=== PATIENT | male | born 1965 | race Caucasian/White ===

== ENCOUNTER 2020-03-14 13:21 | Inpatient (IN) | payer SELFPAY ==
[~2020-03-14] VITALS: Ht 167.6 cm; Wt 90.7 kg
[2020-03-14] MEDS ORDERED: IV NORMAL SALINE 1000ML BAG 1,000 ML IV SCH ×3 (13:54→15:17)
[2020-03-14 14:05] LABS: BASO % 0 % (0-3); EOS # 0.1 x10^3/uL (0.0-0.7); EOS % 1 % (0-3); HEMATOCRIT 39.1 % (39.0-53.0); HEMOGLOBIN 12.6 g/dL (13.0-17.5); LYMPH # 1.5 x10^3/uL (1.0-4.8); LYMPH % 13 % (24-48); MEAN CORPUSCULAR HEMOGLOBIN 35 pg (25-35); MEAN CORPUSCULAR HGB CONC 32 g/dL (31-37); MEAN CORPUSCULAR VOLUME 110 fL (79-100); MONO % 8 % (0-9); NEUT # 9.5 x10^3/uL (1.8-7.7); NEUT % 79 % (31-73); PLATELET COUNT 182 x10^3/uL (140-400); RED BLOOD COUNT 3.56 x10^6/uL (4.30-5.70); RED CELL DISTRIBUTION WIDTH 14.6 % (11.5-14.5); WHITE BLOOD COUNT 12.1 x10^3/uL (4.0-11.0)
--- NOTE | 2020-03-14 14:10 | EKG ---
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
--- NOTE | 2020-03-14 14:13 | PHYS DOC ---
Past Medical History Past Medical History: Alcoholism, Hypertension, Liver Disease Smoking Status: Never Smoker Alcohol Use: Heavy General Adult EDM: Chief Complaint: ALTERED MENTAL STATUS HPI: HPI: Patient is a 54-year-old male who presents to the emergency department for evaluation. He states EMS was called because a friend of his came to check on him after having not seen the patient for several days. The patient states he has a history of heavy alcohol use, and about a month ago was diagnosed with "liver problems", in the emergency department at [facility]. The patient states he was not hospitalized. He states he has had some generalized weakness. He states he last had some alcohol last Thursday. He denies any focal symptoms or pain. He denies any chest pain, abdominal pain, headache, or significant shortness of breath. EMS reported a mild intermittent cough but the patient does not complain of this or exhibit any respiratory symptoms. There are no alleviating or exacerbating factors to his symptoms. Review of Systems: Review of Systems: Constitutional: Denies fever or chills. [] Eyes: Denies change in visual acuity. [] HENT: Denies nasal congestion or sore throat. [] Respiratory: Denies cough or shortness of breath. [] Cardiovascular: Denies chest pain or edema. [] GI: Denies abdominal pain, nausea, vomiting, bloody stools or diarrhea. [] : Denies dysuria. [] Musculoskeletal: Denies back pain or joint pain. [] Integument: Denies rash.. Reports jaundice. [] Neurologic: Denies headache, focal weakness or sensory changes. Reports generalized weakness. [] Endocrine: Denies polyuria or polydipsia. [] Lymphatic: Denies swollen glands. [] Psychiatric: Denies depression or anxiety. [] Heart Score: Risk Factors: Risk Factors: DM, Current or recent (<one month) smoker, HTN, HLP, family history of CAD, obesity. Risk Scores: Score 0 - 3: 2.5% MACE over next 6 weeks - Discharge Home Score 4 - 6: 20.3% MACE over next 6 weeks - Admit for Clinical Observation Score 7 - 10: 72.7% MACE over next 6 weeks - Early Invasive Strategies Current Medications: Current Medications Medications (Trade) Dose Ordered Sig/David Start Time Stop Time Status Last Admin Dose Admin Sodium Chloride 1,000 ml @ 100 mls/hr Q10H 03/14/20 13:54 03/14/20 23:53 Allergies: Allergies: Allergies Coded Allergies Type Severity Reaction Last Updated Verified No Known Drug Allergies 03/14/20 No Physical Exam: PE: PHYSICAL EXAM: CONSTITUTIONAL: Well developed, well nourished HEAD: normocephalic, atraumatic EENT: PERRL, EOMI. Conjunctivae normal color, sclerae appear icteric; dry mucous membranes. NECK: Supple, non-tender; no meningismus. LUNGS: Lungs CTA, breathing even and unlabored. Normal air movement. HEART: Regular rate and rhythm, no murmur CHEST: No deformity; non-tender ABDOMEN: The abdomen is soft, mildly distended, but non-tender, no masses or bruits. EXTREM: Normal ROM; no deformity, no calf tenderness. Normal pulses palpable in all extremities. There is mild bilateral pedal edema. SKIN: No rash; no diaphoresis. The skin is jaundiced. NEURO: Alert; normal speech and cognition; CN's grossly intact; strength grossly intact without focal deficit. BACK: No CVA TTP. Current Patient Data: Labs: Laboratory Tests Test 03/14/20 13:25 White Blood Count 12.1 x10^3/uL (4.0-11.0) H Red Blood Count 3.56 x10^6/uL (4.30-5.70) L Hemoglobin 12.6 g/dL (13.0-17.5) L Hematocrit 39.1 % (39.0-53.0) Mean Corpuscular Volume 110 fL (79-100) H Mean Corpuscular Hemoglobin 35 pg (25-35) Mean Corpuscular Hemoglobin Concent 32 g/dL (31-37) Red Cell Distribution Width 14.6 % (11.5-14.5) H Platelet Count 182 x10^3/uL (140-400) Neutrophils (%) (Auto) 79 % (31-73) H Lymphocytes (%) (Auto) 13 % (24-48) L Monocytes (%) (Auto) 8 % (0-9) Eosinophils (%) (Auto) 1 % (0-3) Basophils (%) (Auto) 0 % (0-3) Neutrophils # (Auto) 9.5 x10^3/uL (1.8-7.7) H Lymphocytes # (Auto) 1.5 x10^3/uL (1.0-4.8) Monocytes # (Auto) 1.0 x10^3/uL (0.0-1.1) Eosinophils # (Auto) 0.1 x10^3/uL (0.0-0.7) Basophils # (Auto) 0.0 x10^3/uL (0.0-0.2) Platelet Estimate Pending Laboratory Tests 03/14/20 13:25 Vital Signs: Vital Signs Date Time Temp Pulse Resp B/P (MAP) Pulse Ox O2 Delivery O2 Flow Rate FiO2 03/14/20 13:25 97.6 92 20 128/72 (90) 99 Room Air 97.6 EKG: EKG: Normal sinus rhythm with a normal rate, normal axis, normal intervals, there are no acute ischemic ST/T changes. Low voltage is present. [] Radiology/Procedures: Radiology/Procedures: PROCEDURE: PORTABLE CHEST 1V EXAM: CHEST 1 VIEW History: Altered mental status COMPARISON: None available. TECHNIQUE: Single portable radiograph of the chest FINDINGS: The cardiac silhouette is unremarkable. The lungs are clear bilaterally. The costophrenic sulci are clear and well demarcated. IMPRESSION: No radiographic evidence of an acute cardiopulmonary process. [] Course & Med Decision Making: Course & Med Decision Making Pertinent Labs and Imaging studies reviewed. (See chart for details) [] 3:30 PM: The patient's condition remains stable. I spoke with the hospitalist, who accepted the patient to the hospital for further evaluation and treatment. Portillo Disclaimer: Portillo Disclaimer: This electronic medical record was generated, in whole or in part, using a voice recognition dictation system. Departure Departure Impression: Primary Impression: Weakness Additional Impressions: Alcoholic cirrhosis Renal failure Hyponatremia Disposition: ADMITTED INPATIENT Admitting Physician: HIMS Condition: GUARDED Referrals: UNKNOWN PCP NAME (PCP) NEGAR TOLBERT MD Mar 14, 2020 14:13
[2020-03-14 14:14] LABS: PROTHROMBIN TIME PATIENT 18.4 SEC (11.7-14.0)
[2020-03-14 14:22] LABS: ALBUMIN 2.6 g/dL (3.4-5.0); ALBUMIN/GLOBULIN RATIO 0.9 (1.0-1.7); CALCIUM 9.5 mg/dL (8.5-10.1); CREATININE 2.2 mg/dL (0.7-1.3); GFR 31.1; MAGNESIUM 1.5 mg/dL (1.8-2.4); POTASSIUM 3.3 mmol/L (3.5-5.1); TOTAL BILIRUBIN 18.6 mg/dL (0.2-1.0); TOTAL PROTEIN 5.5 g/dL (6.4-8.2)
--- NOTE | 2020-03-14 14:46 | RAD ---
EXAM: CHEST 1 VIEW History: Altered mental status COMPARISON: None available. TECHNIQUE: Single portable radiograph of the chest FINDINGS: The cardiac silhouette is unremarkable. The lungs are clear bilaterally. The costophrenic sulci are clear and well demarcated. IMPRESSION: No radiographic evidence of an acute cardiopulmonary process. Electronically signed by: Mehdi Chavez MD (03/14/2020 2:43 PM) [id number]
[2020-03-14] MEDS ORDERED: MAGNESIUM SULFATE 1GM 100 ML IV ONE (15:00)
[2020-03-14] MEDS ORDERED: POTASSIUM CHLORIDE 20 MEQ TABLET.ER. PO ONE (15:00)
[2020-03-14 15:03] LABS: % MYELOS 2 % (0-0)
[2020-03-14 15:05] LABS: % BANDS 10 % (0-9); % LYMPHS 8 % (24-48); % MONOS 8 % (0-10); % SEGS 72 % (35-66); NUCLEATED RBC 5; PLT ESTIMATE ADEQUATE (ADEQUATE)
[2020-03-14] MEDS ORDERED: IV DEXTROSE 5%-LACT RINGERS 1,000 ML IV ONE (15:30)
[2020-03-14] MEDS ORDERED: DOCUSATE SODIUM 100 MG CAPSULE. PO PRN (15:30)
[2020-03-14] MEDS ORDERED: chlordiazePOXIDE HCL 25 MG CAPSULE PO PRN ×2 (15:30)
[2020-03-14] MEDS ORDERED: ACETAMINOPHEN 325 MG TABLET. PO PRN (15:30)
[2020-03-14] MEDS ORDERED: ONDANSETRON PF 4 MG/2 ML VIAL. IV PRN (15:30)
[2020-03-14] MEDS ORDERED: MULTIVIT INFUSN,ADULT 4,VIT K 10 ML, THIAMINE INJ 100 MG, FOLIC ACID INJ 1 MG in IV NOR... IV ONE (15:30)
[2020-03-14] MEDS ORDERED: cloNIDine HCL 0.1 MG TABLET PO PRN (15:30)
[2020-03-14] MEDS ORDERED: ZOLPIDEM 5 MG TABLET. PO PRN (15:30)
[2020-03-14] MEDS ORDERED: diphenhydrAMINE 50 MG/ML VIAL IVP PRN (15:30)
[2020-03-14] MEDS ORDERED: guaiFENesin ORAL 200 MG/10 ML LIQUID. PO PRN (15:30)
[2020-03-14] MEDS ORDERED: ALBUTEROL SULFATE 2.5 MG/3 ML NEBU. NEB PRN (15:30)
[2020-03-14 15:53] LABS: CLARITY,URINE CLOUDY
[2020-03-14 15:57] LABS: FREE T4 1.24 ng/dL (0.76-1.46); THYROID STIM HORMONE (TSH) 3.678 uIU/mL (0.358-3.74)
[2020-03-14 16:01] LABS: BARBITURATES NEG (NEG); BENZODIAZEPINES NEG (NEG); CANNABINOIDS NEG (NEG); COCAINE NEG (NEG); METHADONE NEG (NEG); OPIATES NEG (NEG); PHENCYCLIDINE NEG (NEG)
[2020-03-14 16:03] LABS: COLOR,URINE AMBER; HYALINE CASTS, URINE MODERATE /HPF
[2020-03-14 16:05] LABS: AMPHETAMINE/METHAMPHETAMINE NEG (NEG)
[2020-03-14 16:06] LABS: BACTERIA,URINE 0 /HPF (0-FEW)
[2020-03-14 16:14] LABS: RBC,URINE OCC /HPF (0-2)
[2020-03-14 17:00] VITALS: BP 111/65
--- NOTE | 2020-03-14 17:07 | PDOC1 ---
History and Physical Date of Admission Date of Admission 03/14/2020 Identification/Chief Complaint Chief Complaint I feel sick Source Source: Chart review, Patient History of Present Illness History of Present Illness Patient is a 54 year old male with past medical history of alcohol abuse who was in his usual state of health until approximately 2 days prior to his admission. The patient apparently has been drinking 8 ounces of vodka every day for several years now and was seen approximately 1 month ago at a local hospital in [place] for similar presentation. Patient is jaundiced seems quite disoriented and feels lightheaded and having unsteady gait. Patient has not had a drink in about 30 hours and he was brought in by EMS services after a friend checked on him after not being able to get in contact with him. The patient denies any sick contacts he denies dietary transgressions. He denies history of illegal drug abuse no tattoos no risky behavior has been reported and no history of hepatitis either. The patient has not had any travels outside this area, at the time of my evaluation the patient seems to be in no acute distress does not exhibit hemodynamic instability. Patient denies having had seizures or hallucinations in the past. He has been battling alcohol abuse for several years now Work-up in the emergency department revealed severe electrolyte disturbances reason why we were asked to admit the patient for further treatment. I have discussed the results of his testing and explained the plan of care to the best of my abilities. Patient agrees with the proposed plan of care ER history: Patient is a 54-year-old male who presents to the emergency department for evaluation. He states EMS was called because a friend of his came to check on him after having not seen the patient for several days. The patient states he has a history of heavy alcohol use, and about a month ago was diagnosed with "liver problems", in the emergency department at [facility]. The patient states he was not hospitalized. He states he has had some generalized weakness. He states he last had some alcohol last Thursday. He denies any focal symptoms or pain. He denies any chest pain, abdominal pain, headache, or significant shortness of breath. EMS reported a mild intermittent cough but the patient does not complain of this or exhibit any respiratory sy mptoms. There are no alleviating or exacerbating factors to his symptoms. Past Medical History Psych: Other (Alcoholism) Past Surgical History Past Surgical History: No pertinent history Family History Family History: Other (No pertinent history) Social History Smoke: No ALCOHOL: heavy Drugs: None Current Problem List Problem List Problems Medical Problems: (1) Alcoholic cirrhosis Status: Acute (2) Hyponatremia Status: Acute (3) Renal failure Status: Acute (4) Weakness Status: Acute Current Medications Current Medications Current Medications Medications (Trade) Dose Ordered Sig/David Start Time Stop Time Status Last Admin Dose Admin Acetaminophen (Tylenol) 650 mg PRN Q4HRS PRN 03/14/20 15:30 Albuterol Sulfate (Ventolin Neb Soln) 2.5 mg PRN Q4HRS PRN 03/14/20 15:30 Chlordiazepoxide (Librium) 100 mg PRN Q1HR PRN 03/14/20 15:30 Clonidine HCl (Catapres) 0.1 mg PRN Q6HRS PRN 03/14/20 15:30 Dextrose/Lactated Ringer's 1,000 ml @ 125 mls/hr 1X ONCE 03/14/20 15:30 03/14/20 23:29 Diphenhydramine HCl (Benadryl) 25 mg PRN Q4HRS PRN 03/14/20 15:30 Docusate Sodium (Colace) 100 mg PRN BID PRN 03/14/20 15:30 Enoxaparin Sodium (Lovenox 40mg Syringe) 40 mg Q24H 03/14/20 21:00 Folic Acid (Folic Acid) 1 mg DAILY 03/19/20 09:00 Guaifenesin (Robitussin) 200 mg PRN Q4HRS PRN 03/14/20 15:30 Lorazepam (Ativan Inj) 2 mg PRN Q15MIN PRN 03/14/20 15:30 Magnesium Sulfate/ Dextrose 100 ml @ 100 mls/hr 1X ONCE 03/14/20 15:00 03/14/20 15:59 DC 03/14/20 16:03 100 MLS/HR Multivitamins 10 ml/Thiamine HCl 100 mg/Folic Acid 1 mg/Sodium Chloride 1,011.2 ml @ 125 mls/ hr 1X ONCE 03/14/20 15:30 03/14/20 23:35 03/14/20 15:40 125 MLS/HR Ondansetron HCl (Zofran) 4 mg PRN Q4HRS PRN 03/14/20 15:30 Potassium Chloride (Klor-Con) 40 meq 1X ONCE 03/14/20 15:00 03/14/20 15:01 DC 03/14/20 15:25 40 MEQ Sodium Chloride 1,000 ml @ 100 mls/hr Q10H 03/14/20 15:17 Thiamine Mononitrate (Vitamin B-1) 100 mg DAILY 03/19/20 09:00 Zolpidem Tartrate (Ambien) 5 mg PRN QHS PRN 03/14/20 15:30 Allergies Allergies Allergies Coded Allergies Type Severity Reaction Last Updated Verified No Known Drug Allergies 03/14/20 No ROS Review of System CONSTITUTIONAL: No fever or chills EYES: No recent changes SKIN: jaundice no itching CARDIOVASCULAR: No chest pain, syncope, palpitations, or edema RESPIRATORY: No SOB or cough GASTROINTESTINAL: No nausea, vomiting or abdominal pain NEUROLOGICAL: No headaches + weakness ENDOCRINE: No cold or heat intolerance GENITOURINARY: No urgency or frequency of urination MUSCULOSKELETAL: No back pain or joint pain LYMPHATICS: No enlarged lymph nodes PSYCHIATRIC: No anxiety or depression Physical Exam Physical Exam GEN.: No apparent distress. Alert and oriented. HEENT: Head is normocephalic, atraumatic NECK: Supple. LUNGS: Clear to auscultation. HEART: RRR, S1, S2 present. Peripheral pulses intact ABDOMEN: Soft, nontender. Positive bowel sounds. EXTREMITIES: Without any cyanosis. NEUROLOGIC: Normal speech, normal tone PSYCHIATRIC: Normal affect, normal mood. SKIN: No ulcerations Vitals Vitals Vital Signs Date Time Temp Pulse Resp B/P (MAP) Pulse Ox O2 Delivery O2 Flow Rate FiO2 03/14/20 16:22 88 18 98 03/14/20 13:25 97.6 128/72 (90) Room Air 97.6 Labs Labs Laboratory Tests Test 03/14/20 13:25 03/14/20 15:33 White Blood Count 12.1 x10^3/uL (4.0-11.0) Red Blood Count 3.56 x10^6/uL (4.30-5.70) Hemoglobin 12.6 g/dL (13.0-17.5) Hematocrit 39.1 % (39.0-53.0) Mean Corpuscular Volume 110 fL (79-100) Mean Corpuscular Hemoglobin 35 pg (25-35) Mean Corpuscular Hemoglobin Concent 32 g/dL (31-37) Red Cell Distribution Width 14.6 % (11.5-14.5) Platelet Count 182 x10^3/uL (140-400) Neutrophils (%) (Auto) 79 % (31-73) Lymphocytes (%) (Auto) 13 % (24-48) Monocytes (%) (Auto) 8 % (0-9) Eosinophils (%) (Auto) 1 % (0-3) Basophils (%) (Auto) 0 % (0-3) Neutrophils # (Auto) 9.5 x10^3/uL (1.8-7.7) Lymphocytes # (Auto) 1.5 x10^3/uL (1.0-4.8) Monocytes # (Auto) 1.0 x10^3/uL (0.0-1.1) Eosinophils # (Auto) 0.1 x10^3/uL (0.0-0.7) Basophils # (Auto) 0.0 x10^3/uL (0.0-0.2) Segmented Neutrophils % 72 % (35-66) Band Neutrophils % 10 % (0-9) Lymphocytes % 8 % (24-48) Monocytes % 8 % (0-10) Myelocytes % 2 % (0-0) Nucleated Red Blood Cells 5 Platelet Estimate Adequate (ADEQUATE) Macrocytosis Present Prothrombin Time 18.4 SEC (11.7-14.0) Prothromb Time International Ratio 1.6 (0.8-1.1) Sodium Level 119 mmol/L (136-145) Potassium Level 3.3 mmol/L (3.5-5.1) Chloride Level 75 mmol/L (98-107) Carbon Dioxide Level 22 mmol/L (21-32) Anion Gap 22 (6-14) Blood Urea Nitrogen 27 mg/dL (8-26) Creatinine 2.2 mg/dL (0.7-1.3) Estimated GFR (Cockcroft-Gault) 31.1 BUN/Creatinine Ratio 12 (6-20) Glucose Level 58 mg/dL (70-99) Calcium Level 9.5 mg/dL (8.5-10.1) Magnesium Level 1.5 mg/dL (1.8-2.4) Total Bilirubin 18.6 mg/dL (0.2-1.0) Aspartate Amino Transf (AST/SGOT) 297 U/L (15-37) Alanine Aminotransferase (ALT/SGPT) 132 U/L (16-63) Alkaline Phosphatase 311 U/L (46-116) Ammonia 48 mcmol/L (11-34) Troponin I Quantitative 0.026 ng/mL (0.000-0.055) TR-Tch-G-Type Natriuretic Peptide 2356 pg/mL (0-124) Total Protein 5.5 g/dL (6.4-8.2) Albumin 2.6 g/dL (3.4-5.0) Albumin/Globulin Ratio 0.9 (1.0-1.7) Lipase 541 U/L (73-393) Vitamin B12 Level 1705 pg/mL (247-911) Thyroid Stimulating Hormone (TSH) 3.678 uIU/mL (0.358-3.74) Free Thyroxine 1.24 ng/dL (0.76-1.46) Ethyl Alcohol Level < 10 mg/dL (0-10) Urine Collection Type Unknown Urine Color Pratima Urine Clarity Cloudy Urine pH (<5.0-8.0) Urine Specific [place] (1.000-1.030) Urine Protein mg/dL (NEG-TRACE) Urine Glucose (UA) mg/dL (NEG) Urine Ketones (Stick) mg/dL (NEG) Urine Blood (NEG) Urine Nitrite (NEG) Urine Bilirubin (NEG) Urine Urobilinogen Dipstick mg/dL (0.2 mg/dL) Urine Leukocyte Esterase (NEG) Urine RBC Occ /HPF (0-2) Urine WBC 1-4 /HPF (0-4) Urine Bacteria 0 /HPF (0-FEW) Urine Hyaline Casts Moderate /HPF Urine Mucus Mod /LPF Urine Opiates Screen Neg (NEG) Urine Methadone Screen Neg (NEG) Urine Barbiturates Neg (NEG) Urine Phencyclidine Screen Neg (NEG) Urine Amphetamine/Methamphetamine Neg (NEG) Urine Benzodiazepines Screen Neg (NEG) Urine Cocaine Screen Neg (NEG) Urine Cannabinoids Screen Neg (NEG) Urine Ethyl Alcohol Neg (NEG) Laboratory Tests Test 03/14/20 13:25 03/14/20 15:33 White Blood Count 12.1 x10^3/uL (4.0-11.0) Red Blood Count 3.56 x10^6/uL (4.30-5.70) Hemoglobin 12.6 g/dL (13.0-17.5) Hematocrit 39.1 % (39.0-53.0) Mean Corpuscular Volume 110 fL (79-100) Mean Corpuscular Hemoglobin 35 pg (25-35) Mean Corpuscular Hemoglobin Concent 32 g/dL (31-37) Red Cell Distribution Width 14.6 % (11.5-14.5) Platelet Count 182 x10^3/uL (140-400) Neutrophils (%) (Auto) 79 % (31-73) Lymphocytes (%) (Auto) 13 % (24-48) Monocytes (%) (Auto) 8 % (0-9) Eosinophils (%) (Auto) 1 % (0-3) Basophils (%) (Auto) 0 % (0-3) Neutrophils # (Auto) 9.5 x10^3/uL (1.8-7.7) Lymphocytes # (Auto) 1.5 x10^3/uL (1.0-4.8) Monocytes # (Auto) 1.0 x10^3/uL (0.0-1.1) Eosinophils # (Auto) 0.1 x10^3/uL (0.0-0.7) Basophils # (Auto) 0.0 x10^3/uL (0.0-0.2) Segmented Neutrophils % 72 % (35-66) Band Neutrophils % 10 % (0-9) Lymphocytes % 8 % (24-48) Monocytes % 8 % (0-10) Myelocytes % 2 % (0-0) Nucleated Red Blood Cells 5 Platelet Estimate Adequate (ADEQUATE) Macrocytosis Present Prothrombin Time 18.4 SEC (11.7-14.0) Prothromb Time International Ratio 1.6 (0.8-1.1) Sodium Level 119 mmol/L (136-145) Potassium Level 3.3 mmol/L (3.5-5.1) Chloride Level 75 mmol/L (98-107) Carbon Dioxide Level 22 mmol/L (21-32) Anion Gap 22 (6-14) Blood Urea Nitrogen 27 mg/dL (8-26) Creatinine 2.2 mg/dL (0.7-1.3) Estimated GFR (Cockcroft-Gault) 31.1 BUN/Creatinine Ratio 12 (6-20) Glucose Level 58 mg/dL (70-99) Calcium Level 9.5 mg/dL (8.5-10.1) Magnesium Level 1.5 mg/dL (1.8-2.4) Total Bilirubin 18.6 mg/dL (0.2-1.0) Aspartate Amino Transf (AST/SGOT) 297 U/L (15-37) Alanine Aminotransferase (ALT/SGPT) 132 U/L (16-63) Alkaline Phosphatase 311 U/L (46-116) Ammonia 48 mcmol/L (11-34) Troponin I Quantitative 0.026 ng/mL (0.000-0.055) CN-Rfd-B-Type Natriuretic Peptide 2356 pg/mL (0-124) Total Protein 5.5 g/dL (6.4-8.2) Albumin 2.6 g/dL (3.4-5.0) Albumin/Globulin Ratio 0.9 (1.0-1.7) Lipase 541 U/L (73-393) Vitamin B12 Level 1705 pg/mL (247-911) Thyroid Stimulating Hormone (TSH) 3.678 uIU/mL (0.358-3.74) Free Thyroxine 1.24 ng/dL (0.76-1.46) Ethyl Alcohol Level < 10 mg/dL (0-10) Urine Collection Type Unknown Urine Color Pratima Urine Clarity Cloudy Urine pH (<5.0-8.0) Urine Specific [place] (1.000-1.030) Urine Protein mg/dL (NEG-TRACE) Urine Glucose (UA) mg/dL (NEG) Urine Ketones (Stick) mg/dL (NEG) Urine Blood (NEG) Urine Nitrite (NEG) Urine Bilirubin (NEG) Urine Urobilinogen Dipstick mg/dL (0.2 mg/dL) Urine Leukocyte Esterase (NEG) Urine RBC Occ /HPF (0-2) Urine WBC 1-4 /HPF (0-4) Urine Bacteria 0 /HPF (0-FEW) Urine Hyaline Casts Moderate /HPF Urine Mucus Mod /LPF Urine Opiates Screen Neg (NEG) Urine Methadone Screen Neg (NEG) Urine Barbiturates Neg (NEG) Urine Phencyclidine Screen Neg (NEG) Urine Amphetamine/Methamphetamine Neg (NEG) Urine Benzodiazepines Screen Neg (NEG) Urine Cocaine Screen Neg (NEG) Urine Cannabinoids Screen Neg (NEG) Urine Ethyl Alcohol Neg (NEG) VTE Prophylaxis Ordered VTE Prophylaxis Devices: Yes VTE Pharmacological Prophylaxi: No Assessment/Plan Assessment/Plan Acute alcoholic hepatitis, Maddrey score is 47, scores greater than 32 are poor prognosis. Acute renal failure most likely prerenal etiology since patient has had very poor oral intake over the last 72 hours. Severe hyponatremia Hypomagnesemia Hypokalemia Hypoglycemia Elevated Lipase, doubt pancreatitis given that his symptoms most likely are related to his alcoholic hepatitis Severe alcoholism Plan: do urine electrolytes serum and urine osmol will start prednisolone recheck bmp every 4 hours times 3 replace electrolytes fluid resuscitation will give a banana bag follow urinary output reassess in the am prognosis guarded given the acuity of his presentation SCD for DVT prophylaxis given his liver dysfunction and already autoanticoagulation as a consequence ZABRINA MARIEE MD Mar 14, 2020 17:07
[2020-03-14] MEDS: POTASSIUM CHLORIDE 20MEQ 100 ML IV SCH ×2 (17:23→20:11)
[2020-03-14] MEDS ORDERED: MAGNESIUM SULFATE 4GM 100 ML IV ONE (18:00)
--- NOTE | 2020-03-14 18:22 | NUR ---
Patient arrived around 1630 from the ED on a stretcher. Patient with two IVs in his left arm which are working appropriately and infusing. Patient confused/inconsistent with his memory. Poor historian. Patient appears jaundice and states he drinks a pint of vodka at day. Patient slightly restless upon admission but once he received more fluids he became extremely restless and did not want to sit still. He was stating he could see candy canes floating in the room, itching, trying to pull out IV, and having moderate tremors. Patient states he would like a drink of alcohol. Reoriented him to the facility and where he was at. CIWA completed again and medications given. Will continue to monitor.
[2020-03-14 18:34] LABS: CALCIUM 8.6 mg/dL (8.5-10.1); CREATININE 1.9 mg/dL (0.7-1.3); GFR 36.9; POTASSIUM 3.3 mmol/L (3.5-5.1)
[2020-03-14 19:00] VITALS: BP 104/34
[2020-03-14] MEDS: prednisoLONE 15 MG/5 ML ORAL SOLUTION. PO SCH (20:24)
[2020-03-14] MEDS ORDERED: ENOXAPARIN 40 MG/0.4 ML SYRINGE. SQ SCH (21:00)
--- NOTE | 2020-03-14 21:45 | RAD ---
Exam: Ultrasound abdomen complete Indication: Hyperbilirubinemia/transaminitis Technique: Real-time grayscale and color Doppler images of the abdomen were obtained by the department cotton agent. Comparisons: None FINDINGS: Increased echogenicity of the liver. Hepatopedal flow within the portal vein. Gallbladder is unremarkable. No pericholecystic fluid or wall thickening. Common bile duct measures 4 mm. Right kidney measures 15.1 cm in length. No hydronephrosis. Left kidney measures 14.9 cm in length. No hydronephrosis. Spleen measures 10.2 cm in length. Visualized portions aorta and IVC are unremarkable. IMPRESSION: 1. Increased echogenicity of the liver, likely hepatic steatosis. 2. No hydronephrosis. 3. Normal sonographic appearance of the gallbladder, no evidence of acute cholecystitis. Electronically signed by: Isaias Antonio MD (03/14/2020 9:42 PM) [id number]
[2020-03-14 22:11] LABS: CALCIUM 8.4 mg/dL (8.5-10.1); CREATININE 1.8 mg/dL (0.7-1.3); GFR 39.2; POTASSIUM 3.1 mmol/L (3.5-5.1)
[2020-03-14 23:00] VITALS: BP 110/80
[2020-03-14] MEDS ORDERED: SODIUM CHLORIDE 3 % 500 ML IV ONE (23:30)
[2020-03-15] VITALS (7 sets, daily range): BP systolic 107–144; BP diastolic 62–82
[2020-03-15 04:29] LABS: CALCIUM 8.2 mg/dL (8.5-10.1); CREATININE 1.8 mg/dL (0.7-1.3); GFR 39.2; POTASSIUM 3.6 mmol/L (3.5-5.1)
[2020-03-15 05:09] LABS: SODIUM, URINE <20 mmol/L (Not Estab.); UR POTASSIUM 49.3 mmol/L (Not Estab.)
[2020-03-15] MEDS: prednisoLONE 15 MG/5 ML ORAL SOLUTION. PO SCH (10:23)
--- NOTE | 2020-03-15 10:46 | NUR ---
SW following. Discussed with RN, pt from home alone, doesn't have anyone. Pt withdrawing, not able to have a conversation, not appropriate for PAT at this time. SW will continue to follow.
[2020-03-15 11:05] LABS: CALCIUM 8.1 mg/dL (8.5-10.1); CREATININE 1.5 mg/dL (0.7-1.3); GFR 48.4; POTASSIUM 3.6 mmol/L (3.5-5.1)
[2020-03-15] MEDS ORDERED: IV DEXTROSE 5% - 0.9 % NACL 1,000 ML IV SCH (11:15)
[2020-03-15] MEDS ORDERED: IV DEXTROSE 5 %-0.45 % NACL 1,000 ML IV ONE (11:30)
--- NOTE | 2020-03-15 12:34 | PDOC2 ---
CONSULT Date of Consult Date of Consult DATE: 03/15/20 TIME: 12:28 Reason for Consult Reason for Consult: LOW NA Referring Physician Referring Physician: KODI Identification/Chief Complaint Chief Complaint LIVER PROBLEMS Source Source: Chart review History of Present Illness Reason for Visit: THIS IS A 54 YR OLD WITH CONFUION. 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 PT IS JAUNDICED AND DISORIENTED. LABS SHOWED LIVER FAILURE, LOW NA, LOW K, INCREASED AMMONIA LEVELS. HAS HAD SIMILAR ADMIT AT [facility]. HE CANNOT GIVE ANY HX. ALSO HAS DEENA WITH CR OF 1.8. NO OTHER ADMITS HERE Past Medical History GI: Constipation, GERD Hepatobiliary: Cirrhosis Psych: Other (Alcoholism) Past Surgical History Past Surgical History UNKNOWN Past Surgical History: No pertinent history Family History Family History: Other (No pertinent history) Social History No ALCOHOL: heavy Drugs: None Current Problem List Problem List Problems Medical Problems: (1) Alcoholic cirrhosis Status: Acute (2) Hyponatremia Status: Acute (3) Renal failure Status: Acute (4) Weakness Status: Acute Current Medications Current Medications Current Medications Sodium Chloride 1,000 ml @ 1,000 mls/hr Q1H IV Last administered on 03/14/20at 14:51; Start 03/14/20 at 13:54; Stop 03/14/20 at 14:53; Status DC Sodium Chloride 1,000 ml @ 100 mls/hr Q10H IV Last administered on 03/14/20at 16:07; Start 03/14/20 at 13:54; Stop 03/14/20 at 22:36; Status DC Magnesium Sulfate/ Dextrose 100 ml @ 100 mls/hr 1X ONCE IV Last administered on 03/14/20at 16:03; Start 03/14/20 at 15:00; Stop 03/14/20 at 15:59; Status DC Potassium Chloride (Klor-Con) 40 meq 1X ONCE PO Last administered on 03/14/20at 15:25; Start 03/14/20 at 15:00; Stop 03/14/20 at 15:01; Status DC Dextrose/Lactated Ringer's 1,000 ml @ 125 mls/hr 1X ONCE IV ; Start 03/14/20 at 15:30; Stop 03/14/20 at 17:31; Status DC Sodium Chloride 1,000 ml @ 100 mls/hr Q10H IV Last administered on 03/14/20at 16:40; Start 03/14/20 at 15:17; Stop 03/14/20 at 22:36; Status DC Multivitamins 10 ml/Thiamine HCl 100 mg/Folic Acid 1 mg/Sodium Chloride 1,011.2 ml @ 125 mls/ hr 1X ONCE IV Last administered on 03/14/20at 15:40; Start 03/14/20 at 15:30; Stop 03/14/20 at 23:35; Status DC Ondansetron HCl (Zofran) 4 mg PRN Q4HRS PRN IV NAUSEA/VOMITING; Start 03/14/20 at 15:30 Zolpidem Tartrate (Ambien) 5 mg PRN QHS PRN PO INSOMNIA; Start 03/14/20 at 15:30 Acetaminophen (Tylenol) 650 mg PRN Q4HRS PRN PO TEMP OVER 100.4F OR MILD PAIN; Start 03/14/20 at 15:30 Clonidine HCl (Catapres) 0.1 mg PRN Q6HRS PRN PO SBP>160 OR DBP>90; Start 03/14/20 at 15:30 Diphenhydramine HCl (Benadryl) 25 mg PRN Q4HRS PRN IVP ITCHING; Start 03/14/20 at 15:30 Docusate Sodium (Colace) 100 mg PRN BID PRN PO CONSTIPATION; Start 03/14/20 at 15:30 Albuterol Sulfate (Ventolin Neb Soln) 2.5 mg PRN Q4HRS PRN NEB SHORTNESS OF BREATH; Start 03/14/20 at 15:30 Guaifenesin (Robitussin) 200 mg PRN Q4HRS PRN PO COUGH; Start 03/14/20 at 15:30 Enoxaparin Sodium (Lovenox 40mg Syringe) 40 mg Q24H SQ Last administered on 03/14/20at 20:11; Start 03/14/20 at 21:00; Stop 03/15/20 at 10:27; Status DC Folic Acid (Folic Acid) 1 mg DAILY PO ; Start 03/19/20 at 09:00 Thiamine Mononitrate (Vitamin B-1) 100 mg DAILY PO ; Start 03/19/20 at 09:00 Chlordiazepoxide (Librium) 50 mg PRN Q1HR PRN PO For CIWA 8-14; Start 03/14/20 at 15:30 Chlordiazepoxide (Librium) 100 mg PRN Q1HR PRN PO For CIWA 15 or greater; Start 03/14/20 at 15:30 Lorazepam (Ativan Inj) 2 mg PRN Q15MIN PRN IV SEE COMMENTS Last administered on 03/14/20at 17:56; Start 03/14/20 at 15:30 Magnesium Sulfate 100 ml @ 25 mls/hr 1X ONCE IV Last administered on 03/14/20at 18:55; Start 03/14/20 at 18:00; Stop 03/14/20 at 21:59; Status DC Potassium Chloride/Water 100 ml @ 50 mls/hr Q2H IV Last administered on 03/14/20at 20:11; Start 03/14/20 at 17:30; Stop 03/14/20 at 21:29; Status DC Prednisone (Prelone Oral Soln) 40 mg DAILY PO Last administered on 03/15/20at 10:23; Start 03/14/20 at 20:00 Sodium Chloride 500 ml @ 50 mls/hr 1X ONCE IV Last administered on 03/15/20at 00:22; Start 03/14/20 at 23:30; Stop 03/15/20 at 09:29; Status DC Dextrose/Sodium Chloride 1,000 ml @ 100 mls/hr Q10H IV ; Start 03/15/20 at 11:15; Stop 03/15/20 at 11:19; Status DC Dextrose/Sodium Chloride 1,000 ml @ 75 mls/hr 1X ONCE IV Last administered on 03/15/20at 11:33; Start 03/15/20 at 11:30; Stop 03/16/20 at 00:49 Allergies Allergies: Coded Allergies: No Known Drug Allergies (Unverified , 03/14/20) ROS Review of System UNABLE TO OBTAIN Physical Exam General: Cooperative, No acute distress HEENT: Atraumatic, EOMI Lungs: Clear to auscultation Heart: Regular rate Abdomen: Normal bowel sounds, Soft, No tenderness Skin: No rashes, No breakdown, Other (JAUNDICED) Neuro: Other (CONFUSED) Psych/Mental Status: Other (CONFUSED) MUSCULOSKELETAL: No deformity, No swelling Vitals VITALS Vital Signs Date Time Temp Pulse Resp B/P (MAP) Pulse Ox O2 Delivery O2 Flow Rate FiO2 03/15/20 11:15 99.4 98 18 137/80 (99) 95 Room Air 99.4 Labs Labs Laboratory Tests Test 03/14/20 13:25 03/14/20 15:33 03/14/20 18:20 03/14/20 22:00 White Blood Count 12.1 x10^3/uL (4.0-11.0) Red Blood Count 3.56 x10^6/uL (4.30-5.70) Hemoglobin 12.6 g/dL (13.0-17.5) Hematocrit 39.1 % (39.0-53.0) Mean Corpuscular Volume 110 fL (79-100) Mean Corpuscular Hemoglobin 35 pg (25-35) Mean Corpuscular Hemoglobin Concent 32 g/dL (31-37) Red Cell Distribution Width 14.6 % (11.5-14.5) Platelet Count 182 x10^3/uL (140-400) Neutrophils (%) (Auto) 79 % (31-73) Lymphocytes (%) (Auto) 13 % (24-48) Monocytes (%) (Auto) 8 % (0-9) Eosinophils (%) (Auto) 1 % (0-3) Basophils (%) (Auto) 0 % (0-3) Neutrophils # (Auto) 9.5 x10^3/uL (1.8-7.7) Lymphocytes # (Auto) 1.5 x10^3/uL (1.0-4.8) Monocytes # (Auto) 1.0 x10^3/uL (0.0-1.1) Eosinophils # (Auto) 0.1 x10^3/uL (0.0-0.7) Basophils # (Auto) 0.0 x10^3/uL (0.0-0.2) Segmented Neutrophils % 72 % (35-66) Band Neutrophils % 10 % (0-9) Lymphocytes % 8 % (24-48) Monocytes % 8 % (0-10) Myelocytes % 2 % (0-0) Nucleated Red Blood Cells 5 Platelet Estimate Adequate (ADEQUATE) Macrocytosis Present Prothrombin Time 18.4 SEC (11.7-14.0) Prothromb Time International Ratio 1.6 (0.8-1.1) Urine Sodium <20 mmol/L (Not Estab.) Urine Potassium 49.3 mmol/L (Not Estab.) Urine Chloride <20 mmol/L (Not Estab.) Sodium Level 119 mmol/L (136-145) 119 mmol/L (136-145) 118 mmol/L (136-145) Potassium Level 3.3 mmol/L (3.5-5.1) 3.3 mmol/L (3.5-5.1) 3.1 mmol/L (3.5-5.1) Chloride Level 75 mmol/L (98-107) 78 mmol/L (98-107) 79 mmol/L (98-107) Carbon Dioxide Level 22 mmol/L (21-32) 21 mmol/L (21-32) 20 mmol/L (21-32) Anion Gap 22 (6-14) 20 (6-14) 19 (6-14) Blood Urea Nitrogen 27 mg/dL (8-26) 28 mg/dL (8-26) 28 mg/dL (8-26) Creatinine 2.2 mg/dL (0.7-1.3) 1.9 mg/dL (0.7-1.3) 1.8 mg/dL (0.7-1.3) Estimated GFR (Cockcroft-Gault) 31.1 36.9 39.2 BUN/Creatinine Ratio 12 (6-20) Glucose Level 58 mg/dL (70-99) 76 mg/dL (70-99) 62 mg/dL (70-99) Calcium Level 9.5 mg/dL (8.5-10.1) 8.6 mg/dL (8.5-10.1) 8.4 mg/dL (8.5-10.1) Magnesium Level 1.5 mg/dL (1.8-2.4) Total Bilirubin 18.6 mg/dL (0.2-1.0) Direct Bilirubin 14.2 mg/dL (0.0-0.2) Aspartate Amino Transf (AST/SGOT) 297 U/L (15-37) Alanine Aminotransferase (ALT/SGPT) 132 U/L (16-63) Alkaline Phosphatase 311 U/L (46-116) Ammonia 48 mcmol/L (11-34) Troponin I Quantitative 0.026 ng/mL (0.000-0.055) ZD-Mcr-Y-Type Natriuretic Peptide 2356 pg/mL (0-124) Total Protein 5.5 g/dL (6.4-8.2) Albumin 2.6 g/dL (3.4-5.0) Albumin/Globulin Ratio 0.9 (1.0-1.7) Lipase 541 U/L (73-393) Vitamin B12 Level 1705 pg/mL (247-911) Thyroid Stimulating Hormone (TSH) 3.678 uIU/mL (0.358-3.74) Free Thyroxine 1.24 ng/dL (0.76-1.46) Ethyl Alcohol Level < 10 mg/dL (0-10) Hepatitis A IgM Antibody Nonreactive (Nonreactive) Hepatitis B Surface Antigen Nonreactive (Nonreactive) Hepatitis B Core IgM Antibody Nonreactive (Nonreactive) Hepatitis C IgG Antibody Nonreactive (Nonreactive) Urine Collection Type Unknown Urine Color Pratima Urine Clarity Cloudy Urine pH (<5.0-8.0) Urine Specific [place] (1.000-1.030) Urine Protein mg/dL (NEG-TRACE) Urine Glucose (UA) mg/dL (NEG) Urine Ketones (Stick) mg/dL (NEG) Urine Blood (NEG) Urine Nitrite (NEG) Urine Bilirubin (NEG) Urine Urobilinogen Dipstick mg/dL (0.2 mg/dL) Urine Leukocyte Esterase (NEG) Urine RBC Occ /HPF (0-2) Urine WBC 1-4 /HPF (0-4) Urine Bacteria 0 /HPF (0-FEW) Urine Hyaline Casts Moderate /HPF Urine Mucus Mod /LPF Urine Opiates Screen Neg (NEG) Urine Methadone Screen Neg (NEG) Urine Barbiturates Neg (NEG) Urine Phencyclidine Screen Neg (NEG) Urine Amphetamine/Methamphetamine Neg (NEG) Urine Benzodiazepines Screen Neg (NEG) Urine Cocaine Screen Neg (NEG) Urine Cannabinoids Screen Neg (NEG) Urine Ethyl Alcohol Neg (NEG) Test 03/15/20 02:15 03/15/20 10:50 Sodium Level 122 mmol/L (136-145) 127 mmol/L (136-145) Potassium Level 3.6 mmol/L (3.5-5.1) 3.6 mmol/L (3.5-5.1) Chloride Level 84 mmol/L (98-107) 89 mmol/L (98-107) Carbon Dioxide Level 22 mmol/L (21-32) 23 mmol/L (21-32) Anion Gap 16 (6-14) 15 (6-14) Blood Urea Nitrogen 29 mg/dL (8-26) 29 mg/dL (8-26) Creatinine 1.8 mg/dL (0.7-1.3) 1.5 mg/dL (0.7-1.3) Estimated GFR (Cockcroft-Gault) 39.2 48.4 Glucose Level 52 mg/dL (70-99) 77 mg/dL (70-99) Calcium Level 8.2 mg/dL (8.5-10.1) 8.1 mg/dL (8.5-10.1) Laboratory Tests Test 03/14/20 13:25 03/14/20 15:33 03/14/20 18:20 03/14/20 22:00 White Blood Count 12.1 x10^3/uL (4.0-11.0) Red Blood Count 3.56 x10^6/uL (4.30-5.70) Hemoglobin 12.6 g/dL (13.0-17.5) Hematocrit 39.1 % (39.0-53.0) Mean Corpuscular Volume 110 fL (79-100) Mean Corpuscular Hemoglobin 35 pg (25-35) Mean Corpuscular Hemoglobin Concent 32 g/dL (31-37) Red Cell Distribution Width 14.6 % (11.5-14.5) Platelet Count 182 x10^3/uL (140-400) Neutrophils (%) (Auto) 79 % (31-73) Lymphocytes (%) (Auto) 13 % (24-48) Monocytes (%) (Auto) 8 % (0-9) Eosinophils (%) (Auto) 1 % (0-3) Basophils (%) (Auto) 0 % (0-3) Neutrophils # (Auto) 9.5 x10^3/uL (1.8-7.7) Lymphocytes # (Auto) 1.5 x10^3/uL (1.0-4.8) Monocytes # (Auto) 1.0 x10^3/uL (0.0-1.1) Eosinophils # (Auto) 0.1 x10^3/uL (0.0-0.7) Basophils # (Auto) 0.0 x10^3/uL (0.0-0.2) Segmented Neutrophils % 72 % (35-66) Band Neutrophils % 10 % (0-9) Lymphocytes % 8 % (24-48) Monocytes % 8 % (0-10) Myelocytes % 2 % (0-0) Nucleated Red Blood Cells 5 Platelet Estimate Adequate (ADEQUATE) Macrocytosis Present Prothrombin Time 18.4 SEC (11.7-14.0) Prothromb Time International Ratio 1.6 (0.8-1.1) Urine Sodium <20 mmol/L (Not Estab.) Urine Potassium 49.3 mmol/L (Not Estab.) Urine Chloride <20 mmol/L (Not Estab.) Sodium Level 119 mmol/L (136-145) 119 mmol/L (136-145) 118 mmol/L (136-145) Potassium Level 3.3 mmol/L (3.5-5.1) 3.3 mmol/L (3.5-5.1) 3.1 mmol/L (3.5-5.1) Chloride Level 75 mmol/L (98-107) 78 mmol/L (98-107) 79 mmol/L (98-107) Carbon Dioxide Level 22 mmol/L (21-32) 21 mmol/L (21-32) 20 mmol/L (21-32) Anion Gap 22 (6-14) 20 (6-14) 19 (6-14) Blood Urea Nitrogen 27 mg/dL (8-26) 28 mg/dL (8-26) 28 mg/dL (8-26) Creatinine 2.2 mg/dL (0.7-1.3) 1.9 mg/dL (0.7-1.3) 1.8 mg/dL (0.7-1.3) Estimated GFR (Cockcroft-Gault) 31.1 36.9 39.2 BUN/Creatinine Ratio 12 (6-20) Glucose Level 58 mg/dL (70-99) 76 mg/dL (70-99) 62 mg/dL (70-99) Calcium Level 9.5 mg/dL (8.5-10.1) 8.6 mg/dL (8.5-10.1) 8.4 mg/dL (8.5-10.1) Magnesium Level 1.5 mg/dL (1.8-2.4) Total Bilirubin 18.6 mg/dL (0.2-1.0) Direct Bilirubin 14.2 mg/dL (0.0-0.2) Aspartate Amino Transf (AST/SGOT) 297 U/L (15-37) Alanine Aminotransferase (ALT/SGPT) 132 U/L (16-63) Alkaline Phosphatase 311 U/L (46-116) Ammonia 48 mcmol/L (11-34) Troponin I Quantitative 0.026 ng/mL (0.000-0.055) LX-Vtr-L-Type Natriuretic Peptide 2356 pg/mL (0-124) Total Protein 5.5 g/dL (6.4-8.2) Albumin 2.6 g/dL (3.4-5.0) Albumin/Globulin Ratio 0.9 (1.0-1.7) Lipase 541 U/L (73-393) Vitamin B12 Level 1705 pg/mL (247-911) Thyroid Stimulating Hormone (TSH) 3.678 uIU/mL (0.358-3.74) Free Thyroxine 1.24 ng/dL (0.76-1.46) Ethyl Alcohol Level < 10 mg/dL (0-10) Hepatitis A IgM Antibody Nonreactive (Nonreactive) Hepatitis B Surface Antigen Nonreactive (Nonreactive) Hepatitis B Core IgM Antibody Nonreactive (Nonreactive) Hepatitis C IgG Antibody Nonreactive (Nonreactive) Urine Collection Type Unknown Urine Color Pratima Urine Clarity Cloudy Urine pH (<5.0-8.0) Urine Specific [place] (1.000-1.030) Urine Protein mg/dL (NEG-TRACE) Urine Glucose (UA) mg/dL (NEG) Urine Ketones (Stick) mg/dL (NEG) Urine Blood (NEG) Urine Nitrite (NEG) Urine Bilirubin (NEG) Urine Urobilinogen Dipstick mg/dL (0.2 mg/dL) Urine Leukocyte Esterase (NEG) Urine RBC Occ /HPF (0-2) Urine WBC 1-4 /HPF (0-4) Urine Bacteria 0 /HPF (0-FEW) Urine Hyaline Casts Moderate /HPF Urine Mucus Mod /LPF Urine Opiates Screen Neg (NEG) Urine Methadone Screen Neg (NEG) Urine Barbiturates Neg (NEG) Urine Phencyclidine Screen Neg (NEG) Urine Amphetamine/Methamphetamine Neg (NEG) Urine Benzodiazepines Screen Neg (NEG) Urine Cocaine Screen Neg (NEG) Urine Cannabinoids Screen Neg (NEG) Urine Ethyl Alcohol Neg (NEG) Test 03/15/20 02:15 03/15/20 10:50 Sodium Level 122 mmol/L (136-145) 127 mmol/L (136-145) Potassium Level 3.6 mmol/L (3.5-5.1) 3.6 mmol/L (3.5-5.1) Chloride Level 84 mmol/L (98-107) 89 mmol/L (98-107) Carbon Dioxide Level 22 mmol/L (21-32) 23 mmol/L (21-32) Anion Gap 16 (6-14) 15 (6-14) Blood Urea Nitrogen 29 mg/dL (8-26) 29 mg/dL (8-26) Creatinine 1.8 mg/dL (0.7-1.3) 1.5 mg/dL (0.7-1.3) Estimated GFR (Cockcroft-Gault) 39.2 48.4 Glucose Level 52 mg/dL (70-99) 77 mg/dL (70-99) Calcium Level 8.2 mg/dL (8.5-10.1) 8.1 mg/dL (8.5-10.1) Assessment/Plan Assessment/Plan IMP HYPONATREMIA LIVER FAILURE ETOH ABUSE HX MET ENCEPHALOPATHY HYPOKALEMIA HYPOMAGNESEMIA PLAN 3% SALINE ISOTONIC OR HYPOTONIC SALINE NEEDED GI EVAL AND TX BANANA BAG URINE STUDIES POOR PROGNOSIS D/W ATTENDING HASEEB JOINER MD Mar 15, 2020 12:34
--- NOTE | 2020-03-15 14:16 | PDOC ---
PROGRESS NOTES Chief Complaint Chief Complaint Acute alcoholic hepatitis, Maddrey score is 47, scores greater than 32 are poor prognosis. Acute renal failure most likely prerenal etiology since patient has had very poor oral intake over the last 72 hours. Severe hyponatremia Hypomagnesemia Hypokalemia Hypoglycemia Elevated Lipase, doubt pancreatitis given that his symptoms most likely are related to his alcoholic hepatitis Severe alcoholism Plan: discontinue prednisolone recheck bmp at 3pm replace electrolytes fluid resuscitation will give a banana bag follow urinary output reassess in the am prognosis guarded given the acuity of his presentation SCD for DVT prophylaxis given his liver dysfunction and already aut oanticoagulation as a consequence History of Present Illness History of Present Illness Appreciated nephrology consultation , poor prognosis, will follow urinary symptoms, will reeval in the am at the resent time he is quite poor ill and with poor prognosis, he is going to be quite debilitated to continue back to work. Mason reassess int he a m Vitals Vitals Vital Signs Date Time Temp Pulse Resp B/P (MAP) Pulse Ox O2 Delivery O2 Flow Rate FiO2 03/15/20 11:15 99.4 98 18 137/80 (99) 95 Room Air 99.4 Physical Exam General: Cooperative, No acute distress Heart: Regular rate Lungs: Clear Abdomen: Normal bowel sounds, Soft, No tenderness Skin: No rashes, No breakdown, Other (JAUNDICED) Labs LABS Laboratory Tests Test 03/14/20 15:33 03/14/20 18:20 03/14/20 22:00 03/15/20 02:15 Urine Collection Type Unknown Urine Color Pratima Urine Clarity Cloudy Urine pH (<5.0-8.0) Urine Specific [place] (1.000-1.030) Urine Protein mg/dL (NEG-TRACE) Urine Glucose (UA) mg/dL (NEG) Urine Ketones (Stick) mg/dL (NEG) Urine Blood (NEG) Urine Nitrite (NEG) Urine Bilirubin (NEG) Urine Urobilinogen Dipstick mg/dL (0.2 mg/dL) Urine Leukocyte Esterase (NEG) Urine RBC Occ /HPF (0-2) Urine WBC 1-4 /HPF (0-4) Urine Bacteria 0 /HPF (0-FEW) Urine Hyaline Casts Moderate /HPF Urine Mucus Mod /LPF Urine Opiates Screen Neg (NEG) Urine Methadone Screen Neg (NEG) Urine Barbiturates Neg (NEG) Urine Phencyclidine Screen Neg (NEG) Urine Amphetamine/Methamphetamine Neg (NEG) Urine Benzodiazepines Screen Neg (NEG) Urine Cocaine Screen Neg (NEG) Urine Cannabinoids Screen Neg (NEG) Urine Ethyl Alcohol Neg (NEG) Sodium Level 119 mmol/L (136-145) 118 mmol/L (136-145) 122 mmol/L (136-145) Potassium Level 3.3 mmol/L (3.5-5.1) 3.1 mmol/L (3.5-5.1) 3.6 mmol/L (3.5-5.1) Chloride Level 78 mmol/L (98-107) 79 mmol/L (98-107) 84 mmol/L (98-107) Carbon Dioxide Level 21 mmol/L (21-32) 20 mmol/L (21-32) 22 mmol/L (21-32) Anion Gap 20 (6-14) 19 (6-14) 16 (6-14) Blood Urea Nitrogen 28 mg/dL (8-26) 28 mg/dL (8-26) 29 mg/dL (8-26) Creatinine 1.9 mg/dL (0.7-1.3) 1.8 mg/dL (0.7-1.3) 1.8 mg/dL (0.7-1.3) Estimated GFR (Cockcroft-Gault) 36.9 39.2 39.2 Glucose Level 76 mg/dL (70-99) 62 mg/dL (70-99) 52 mg/dL (70-99) Calcium Level 8.6 mg/dL (8.5-10.1) 8.4 mg/dL (8.5-10.1) 8.2 mg/dL (8.5-10.1) Test 03/15/20 10:50 Sodium Level 127 mmol/L (136-145) Potassium Level 3.6 mmol/L (3.5-5.1) Chloride Level 89 mmol/L (98-107) Carbon Dioxide Level 23 mmol/L (21-32) Anion Gap 15 (6-14) Blood Urea Nitrogen 29 mg/dL (8-26) Creatinine 1.5 mg/dL (0.7-1.3) Estimated GFR (Cockcroft-Gault) 48.4 Glucose Level 77 mg/dL (70-99) Calcium Level 8.1 mg/dL (8.5-10.1) Assessment and Plan Assessmemt and Plan Problems Medical Problems: (1) Alcoholic cirrhosis Status: Acute (2) Hyponatremia Status: Acute (3) Renal failure Status: Acute (4) Weakness Status: Acute Comment Review of Relevant I have reviewed the following items hesham (where applicable) has been applied. Labs Laboratory Tests Test 03/14/20 13:25 03/14/20 15:33 03/14/20 18:20 03/14/20 22:00 White Blood Count 12.1 x10^3/uL (4.0-11.0) Red Blood Count 3.56 x10^6/uL (4.30-5.70) Hemoglobin 12.6 g/dL (13.0-17.5) Hematocrit 39.1 % (39.0-53.0) Mean Corpuscular Volume 110 fL (79-100) Mean Corpuscular Hemoglobin 35 pg (25-35) Mean Corpuscular Hemoglobin Concent 32 g/dL (31-37) Red Cell Distribution Width 14.6 % (11.5-14.5) Platelet Count 182 x10^3/uL (140-400) Neutrophils (%) (Auto) 79 % (31-73) Lymphocytes (%) (Auto) 13 % (24-48) Monocytes (%) (Auto) 8 % (0-9) Eosinophils (%) (Auto) 1 % (0-3) Basophils (%) (Auto) 0 % (0-3) Neutrophils # (Auto) 9.5 x10^3/uL (1.8-7.7) Lymphocytes # (Auto) 1.5 x10^3/uL (1.0-4.8) Monocytes # (Auto) 1.0 x10^3/uL (0.0-1.1) Eosinophils # (Auto) 0.1 x10^3/uL (0.0-0.7) Basophils # (Auto) 0.0 x10^3/uL (0.0-0.2) Segmented Neutrophils % 72 % (35-66) Band Neutrophils % 10 % (0-9) Lymphocytes % 8 % (24-48) Monocytes % 8 % (0-10) Myelocytes % 2 % (0-0) Nucleated Red Blood Cells 5 Platelet Estimate Adequate (ADEQUATE) Macrocytosis Present Prothrombin Time 18.4 SEC (11.7-14.0) Prothromb Time International Ratio 1.6 (0.8-1.1) Urine Sodium <20 mmol/L (Not Estab.) Urine Potassium 49.3 mmol/L (Not Estab.) Urine Chloride <20 mmol/L (Not Estab.) Sodium Level 119 mmol/L (136-145) 119 mmol/L (136-145) 118 mmol/L (136-145) Potassium Level 3.3 mmol/L (3.5-5.1) 3.3 mmol/L (3.5-5.1) 3.1 mmol/L (3.5-5.1) Chloride Level 75 mmol/L (98-107) 78 mmol/L (98-107) 79 mmol/L (98-107) Carbon Dioxide Level 22 mmol/L (21-32) 21 mmol/L (21-32) 20 mmol/L (21-32) Anion Gap 22 (6-14) 20 (6-14) 19 (6-14) Blood Urea Nitrogen 27 mg/dL (8-26) 28 mg/dL (8-26) 28 mg/dL (8-26) Creatinine 2.2 mg/dL (0.7-1.3) 1.9 mg/dL (0.7-1.3) 1.8 mg/dL (0.7-1.3) Estimated GFR (Cockcroft-Gault) 31.1 36.9 39.2 BUN/Creatinine Ratio 12 (6-20) Glucose Level 58 mg/dL (70-99) 76 mg/dL (70-99) 62 mg/dL (70-99) Calcium Level 9.5 mg/dL (8.5-10.1) 8.6 mg/dL (8.5-10.1) 8.4 mg/dL (8.5-10.1) Magnesium Level 1.5 mg/dL (1.8-2.4) Total Bilirubin 18.6 mg/dL (0.2-1.0) Direct Bilirubin 14.2 mg/dL (0.0-0.2) Aspartate Amino Transf (AST/SGOT) 297 U/L (15-37) Alanine Aminotransferase (ALT/SGPT) 132 U/L (16-63) Alkaline Phosphatase 311 U/L (46-116) Ammonia 48 mcmol/L (11-34) Troponin I Quantitative 0.026 ng/mL (0.000-0.055) EM-Cqc-T-Type Natriuretic Peptide 2356 pg/mL (0-124) Total Protein 5.5 g/dL (6.4-8.2) Albumin 2.6 g/dL (3.4-5.0) Albumin/Globulin Ratio 0.9 (1.0-1.7) Lipase 541 U/L (73-393) Vitamin B12 Level 1705 pg/mL (247-911) Thyroid Stimulating Hormone (TSH) 3.678 uIU/mL (0.358-3.74) Free Thyroxine 1.24 ng/dL (0.76-1.46) Ethyl Alcohol Level < 10 mg/dL (0-10) Hepatitis A IgM Antibody Nonreactive (Nonreactive) Hepatitis B Surface Antigen Nonreactive (Nonreactive) Hepatitis B Core IgM Antibody Nonreactive (Nonreactive) Hepatitis C IgG Antibody Nonreactive (Nonreactive) Urine Collection Type Unknown Urine Color Pratima Urine Clarity Cloudy Urine pH (<5.0-8.0) Urine Specific [place] (1.000-1.030) Urine Protein mg/dL (NEG-TRACE) Urine Glucose (UA) mg/dL (NEG) Urine Ketones (Stick) mg/dL (NEG) Urine Blood (NEG) Urine Nitrite (NEG) Urine Bilirubin (NEG) Urine Urobilinogen Dipstick mg/dL (0.2 mg/dL) Urine Leukocyte Esterase (NEG) Urine RBC Occ /HPF (0-2) Urine WBC 1-4 /HPF (0-4) Urine Bacteria 0 /HPF (0-FEW) Urine Hyaline Casts Moderate /HPF Urine Mucus Mod /LPF Urine Opiates Screen Neg (NEG) Urine Methadone Screen Neg (NEG) Urine Barbiturates Neg (NEG) Urine Phencyclidine Screen Neg (NEG) Urine Amphetamine/Methamphetamine Neg (NEG) Urine Benzodiazepines Screen Neg (NEG) Urine Cocaine Screen Neg (NEG) Urine Cannabinoids Screen Neg (NEG) Urine Ethyl Alcohol Neg (NEG) Test 03/15/20 02:15 03/15/20 10:50 Sodium Level 122 mmol/L (136-145) 127 mmol/L (136-145) Potassium Level 3.6 mmol/L (3.5-5.1) 3.6 mmol/L (3.5-5.1) Chloride Level 84 mmol/L (98-107) 89 mmol/L (98-107) Carbon Dioxide Level 22 mmol/L (21-32) 23 mmol/L (21-32) Anion Gap 16 (6-14) 15 (6-14) Blood Urea Nitrogen 29 mg/dL (8-26) 29 mg/dL (8-26) Creatinine 1.8 mg/dL (0.7-1.3) 1.5 mg/dL (0.7-1.3) Estimated GFR (Cockcroft-Gault) 39.2 48.4 Glucose Level 52 mg/dL (70-99) 77 mg/dL (70-99) Calcium Level 8.2 mg/dL (8.5-10.1) 8.1 mg/dL (8.5-10.1) Laboratory Tests Test 03/14/20 15:33 03/14/20 18:20 03/14/20 22:00 03/15/20 02:15 Urine Collection Type Unknown Urine Color Pratima Urine Clarity Cloudy Urine pH (<5.0-8.0) Urine Specific [place] (1.000-1.030) Urine Protein mg/dL (NEG-TRACE) Urine Glucose (UA) mg/dL (NEG) Urine Ketones (Stick) mg/dL (NEG) Urine Blood (NEG) Urine Nitrite (NEG) Urine Bilirubin (NEG) Urine Urobilinogen Dipstick mg/dL (0.2 mg/dL) Urine Leukocyte Esterase (NEG) Urine RBC Occ /HPF (0-2) Urine WBC 1-4 /HPF (0-4) Urine Bacteria 0 /HPF (0-FEW) Urine Hyaline Casts Moderate /HPF Urine Mucus Mod /LPF Urine Opiates Screen Neg (NEG) Urine Methadone Screen Neg (NEG) Urine Barbiturates Neg (NEG) Urine Phencyclidine Screen Neg (NEG) Urine Amphetamine/Methamphetamine Neg (NEG) Urine Benzodiazepines Screen Neg (NEG) Urine Cocaine Screen Neg (NEG) Urine Cannabinoids Screen Neg (NEG) Urine Ethyl Alcohol Neg (NEG) Sodium Level 119 mmol/L (136-145) 118 mmol/L (136-145) 122 mmol/L (136-145) Potassium Level 3.3 mmol/L (3.5-5.1) 3.1 mmol/L (3.5-5.1) 3.6 mmol/L (3.5-5.1) Chloride Level 78 mmol/L (98-107) 79 mmol/L (98-107) 84 mmol/L (98-107) Carbon Dioxide Level 21 mmol/L (21-32) 20 mmol/L (21-32) 22 mmol/L (21-32) Anion Gap 20 (6-14) 19 (6-14) 16 (6-14) Blood Urea Nitrogen 28 mg/dL (8-26) 28 mg/dL (8-26) 29 mg/dL (8-26) Creatinine 1.9 mg/dL (0.7-1.3) 1.8 mg/dL (0.7-1.3) 1.8 mg/dL (0.7-1.3) Estimated GFR (Cockcroft-Gault) 36.9 39.2 39.2 Glucose Level 76 mg/dL (70-99) 62 mg/dL (70-99) 52 mg/dL (70-99) Calcium Level 8.6 mg/dL (8.5-10.1) 8.4 mg/dL (8.5-10.1) 8.2 mg/dL (8.5-10.1) Test 03/15/20 10:50 Sodium Level 127 mmol/L (136-145) Potassium Level 3.6 mmol/L (3.5-5.1) Chloride Level 89 mmol/L (98-107) Carbon Dioxide Level 23 mmol/L (21-32) Anion Gap 15 (6-14) Blood Urea Nitrogen 29 mg/dL (8-26) Creatinine 1.5 mg/dL (0.7-1.3) Estimated GFR (Cockcroft-Gault) 48.4 Glucose Level 77 mg/dL (70-99) Calcium Level 8.1 mg/dL (8.5-10.1) Medications Current Medications Sodium Chloride 1,000 ml @ 1,000 mls/hr Q1H IV Last administered on 03/14/20at 14:51; Start 03/14/20 at 13:54; Stop 03/14/20 at 14:53; Status DC Sodium Chloride 1,000 ml @ 100 mls/hr Q10H IV Last administered on 03/14/20at 16:07; Start 03/14/20 at 13:54; Stop 03/14/20 at 22:36; Status DC Magnesium Sulfate/ Dextrose 100 ml @ 100 mls/hr 1X ONCE IV Last administered on 03/14/20at 16:03; Start 03/14/20 at 15:00; Stop 03/14/20 at 15:59; Status DC Potassium Chloride (Klor-Con) 40 meq 1X ONCE PO Last administered on 03/14/20at 15:25; Start 03/14/20 at 15:00; Stop 03/14/20 at 15:01; Status DC Dextrose/Lactated Ringer's 1,000 ml @ 125 mls/hr 1X ONCE IV ; Start 03/14/20 at 15:30; Stop 03/14/20 at 17:31; Status DC Sodium Chloride 1,000 ml @ 100 mls/hr Q10H IV Last administered on 03/14/20at 16:40; Start 03/14/20 at 15:17; Stop 03/14/20 at 22:36; Status DC Multivitamins 10 ml/Thiamine HCl 100 mg/Folic Acid 1 mg/Sodium Chloride 1,011.2 ml @ 125 mls/ hr 1X ONCE IV Last administered on 03/14/20at 15:40; Start 03/14/20 at 15:30; Stop 03/14/20 at 23:35; Status DC Ondansetron HCl (Zofran) 4 mg PRN Q4HRS PRN IV NAUSEA/VOMITING; Start 03/14/20 at 15:30 Zolpidem Tartrate (Ambien) 5 mg PRN QHS PRN PO INSOMNIA; Start 03/14/20 at 15:30 Acetaminophen (Tylenol) 650 mg PRN Q4HRS PRN PO TEMP OVER 100.4F OR MILD PAIN; Start 03/14/20 at 15:30 Clonidine HCl (Catapres) 0.1 mg PRN Q6HRS PRN PO SBP>160 OR DBP>90; Start 03/14/20 at 15:30 Diphenhydramine HCl (Benadryl) 25 mg PRN Q4HRS PRN IVP ITCHING; Start 03/14/20 at 15:30 Docusate Sodium (Colace) 100 mg PRN BID PRN PO CONSTIPATION; Start 03/14/20 at 15:30 Albuterol Sulfate (Ventolin Neb Soln) 2.5 mg PRN Q4HRS PRN NEB SHORTNESS OF BREATH; Start 03/14/20 at 15:30 Guaifenesin (Robitussin) 200 mg PRN Q4HRS PRN PO COUGH; Start 03/14/20 at 15:30 Enoxaparin Sodium (Lovenox 40mg Syringe) 40 mg Q24H SQ Last administered on 03/14/20at 20:11; Start 03/14/20 at 21:00; Stop 03/15/20 at 10:27; Status DC Folic Acid (Folic Acid) 1 mg DAILY PO ; Start 03/19/20 at 09:00 Thiamine Mononitrate (Vitamin B-1) 100 mg DAILY PO ; Start 03/19/20 at 09:00 Chlordiazepoxide (Librium) 50 mg PRN Q1HR PRN PO For CIWA 8-14; Start 03/14/20 at 15:30 Chlordiazepoxide (Librium) 100 mg PRN Q1HR PRN PO For CIWA 15 or greater; Start 03/14/20 at 15:30 Lorazepam (Ativan Inj) 2 mg PRN Q15MIN PRN IV SEE COMMENTS Last administered on 03/14/20at 17:56; Start 03/14/20 at 15:30 Magnesium Sulfate 100 ml @ 25 mls/hr 1X ONCE IV Last administered on 03/14/20at 18:55; Start 03/14/20 at 18:00; Stop 03/14/20 at 21:59; Status DC Potassium Chloride/Water 100 ml @ 50 mls/hr Q2H IV Last administered on 03/14/20at 20:11; Start 03/14/20 at 17:30; Stop 03/14/20 at 21:29; Status DC Prednisone (Prelone Oral Soln) 40 mg DAILY PO Last administered on 03/15/20at 10:23; Start 03/14/20 at 20:00 Sodium Chloride 500 ml @ 50 mls/hr 1X ONCE IV Last administered on 03/15/20at 00:22; Start 03/14/20 at 23:30; Stop 03/15/20 at 09:29; Status DC Dextrose/Sodium Chloride 1,000 ml @ 100 mls/hr Q10H IV ; Start 03/15/20 at 11:15; Stop 03/15/20 at 11:19; Status DC Dextrose/Sodium Chloride 1,000 ml @ 75 mls/hr 1X ONCE IV Last administered on 03/15/20at 11:33; Start 03/15/20 at 11:30; Stop 03/16/20 at 00:49 Spironolactone (Aldactone) 25 mg DAILY PO ; Start 03/16/20 at 09:00 Vitals/I & O Vital Sign - Last 24 Hours 03/14/20 03/14/20 03/14/20 03/14/20 14:22 14:52 15:22 15:52 Pulse 92 86 90 88 Resp 20 20 20 18 Pulse Ox 99 98 99 98 03/14/20 03/14/20 03/14/20 03/14/20 16:22 17:00 17:00 19:00 Temp 97.8 98.9 97.8 98.9 Pulse 88 86 90 Resp 18 18 B/P (MAP) 111/65 (80) 104/34 (57) Pulse Ox 98 98 93 O2 Delivery Room Air Room Air Room Air 03/14/20 03/14/20 03/14/20 03/15/20 19:30 20:19 23:00 03:00 Temp 98.2 98.1 98.2 98.1 Pulse 96 87 Resp 18 18 B/P (MAP) 110/80 (90) 129/76 (93) Pulse Ox 93 97 90 O2 Delivery Room Air Room Air Room Air 03/15/20 03/15/20 03/15/20 07:15 07:45 11:15 Temp 98.6 99.4 98.6 99.4 Pulse 89 98 Resp 16 18 B/P (MAP) 144/77 (99) 137/80 (99) Pulse Ox 90 95 O2 Delivery Room Air Room Air Room Air Intake and Output 03/14/20 03/14/20 03/15/20 15:00 23:00 07:00 Intake Total 1120 ml 2000 ml Balance 1120 ml 2000 ml ZABRINA MARIEE MD Mar 15, 2020 14:16
[2020-03-15 15:38] LABS: CALCIUM 8.5 mg/dL (8.5-10.1); CREATININE 1.6 mg/dL (0.7-1.3); GFR 44.9; POTASSIUM 3.6 mmol/L (3.5-5.1)
[2020-03-16 03:00] VITALS: BP 100/62
[2020-03-16 03:30] LABS: CALCIUM 8.5 mg/dL (8.5-10.1); CREATININE 1.2 mg/dL (0.7-1.3); GFR 62.6
[2020-03-16 07:00] VITALS: BP 121/73
[2020-03-16] MEDS: prednisoLONE 15 MG/5 ML ORAL SOLUTION. PO SCH (08:26)
[2020-03-16] MEDS: IPRATRPIUM/ALBUTEROL 0.5/2.5MG 3 ML NEBU. NEB SCH ×4 (08:58→20:09)
[2020-03-16] MEDS ORDERED: SPIRONOLACTONE 25 MG TABLET PO SCH (09:00)
[2020-03-16] MEDS ORDERED: HALOPERIDOL LACTATE 5 MG/ML VIAL. IVP PRN (10:45)
[2020-03-16] MEDS ORDERED: POTASSIUM CHLORIDE 20 MEQ TABLET.ER. PO ONE (10:45)
[2020-03-16] MEDS ORDERED: LORazepam 1 MG TABLET PO PRN ×2 (10:45)
[2020-03-16 11:00] VITALS: BP 141/76
--- NOTE | 2020-03-16 11:26 | PDOC ---
[facility] PROGRESS NOTE Chief Complaint Chief Complaint Acute alcoholic hepatitis, [place]ly[place] score is 47, scores greater than 32 are poor prognosis. Acute renal failure most likely prerenal etiology since patient has had very poor oral intake over the last 72 hours. Severe hyponatremia Hypomagnesemia Hypokalemia Hypoglycemia Elevated Lipase, doubt pancreatitis given that his symptoms most likely are related to his alcoholic hepatitis Severe alcoholism History of Present Illness History of Present Illness 03/16/2020 Patient seen and examined He is pleasantly confused Discussed with RN Chart Vitals/I&O Vitals/I&O: Vital Signs Date Time Temp Pulse Resp B/P (MAP) Pulse Ox O2 Delivery O2 Flow Rate FiO2 03/16/20 11:00 97.8 92 18 141/76 (97) 92 Room Air 97.8 I & O 03/15/20 03/15/20 03/16/20 15:00 23:00 07:00 Intake Total 120 ml 240 ml 645 ml Balance 120 ml 240 ml 645 ml Physical Exam General: mild distress, Other (Pleasantly confused) Heart: Regular rate Lungs: Clear Abdomen: Normal bowel sounds, Soft, No tenderness Skin: No rashes, No breakdown, Other (JAUNDICED) Labs Labs: Laboratory Tests Test 03/15/20 15:15 03/16/20 02:51 Sodium Level 123 mmol/L (136-145) 126 mmol/L (136-145) Potassium Level 3.6 mmol/L (3.5-5.1) 3.0 mmol/L (3.5-5.1) Chloride Level 87 mmol/L (98-107) 88 mmol/L (98-107) Carbon Dioxide Level 22 mmol/L (21-32) 26 mmol/L (21-32) Anion Gap 14 (6-14) 12 (6-14) Blood Urea Nitrogen 30 mg/dL (8-26) 29 mg/dL (8-26) Creatinine 1.6 mg/dL (0.7-1.3) 1.2 mg/dL (0.7-1.3) Estimated GFR (Cockcroft-Gault) 44.9 62.6 Glucose Level 154 mg/dL (70-99) 152 mg/dL (70-99) Calcium Level 8.5 mg/dL (8.5-10.1) 8.5 mg/dL (8.5-10.1) Assessment and Plan Assessmemt and Plan Problems Medical Problems: (1) Alcoholic cirrhosis Status: Acute (2) Hyponatremia Status: Acute (3) Renal failure Status: Acute (4) Weakness Status: Acute Acute alcoholic hepatitis, Maddrey score is 47, scores greater than 32 are poor prognosis. Acute renal failure most likely prerenal etiology since patient has had very poor oral intake over the last 72 hours. Severe hyponatremia Hypomagnesemia Hypokalemia Hypoglycemia Elevated Lipase, doubt pancreatitis given that his symptoms most likely are related to his alcoholic hepatitis Severe alcoholism Plan: Consult GI discontinue prednisolone recheck bmp at 3pm replace electrolytes fluid resuscitation will give a banana bag follow urinary output reassess in the am prognosis guarded given the acuity of his presentation SCD for DVT prophylaxis given his liver dysfunction and already autoanticoagulation as a consequence Comment Review of Relevant I have reviewed the following items hesham (where applicable) has been applied. Medications: Current Medications Medications (Trade) Dose Ordered Sig/David Route PRN Reason Start Time Stop Time Status Last Admin Dose Admin Dextrose/Sodium Chloride 1,000 ml @ 75 mls/hr 1X ONCE IV 03/15/20 11:30 03/16/20 00:49 DC 03/15/20 11:33 Spironolactone (Aldactone) 25 mg DAILY PO 03/16/20 09:00 03/16/20 08:26 Albuterol/ Ipratropium (Duoneb) 3 ml RTQID NEB 03/16/20 08:30 03/16/20 08:58 CAMPBELL GANT K III DO March 16, 2020 11:26
--- NOTE | 2020-03-16 11:27 | NUR ---
SW following. Discussed with RN, pt still very confused, can really only answer yes or no questions. MICHELLE contacted Lev with PAT team to have her call the floor tomorrow morning (03/17/2020) to determine if pt ready to be seen. No contacts listed and no prior visits to [facility]. MICHELLE will continue to follow.
--- NOTE | 2020-03-16 12:29 | PDOC ---
Renal-Progress Notes Subjective Notes Notes NONE History of Present Illness Hx of present illness NO CHANGE Vitals Vitals Vital Signs Date Time Temp Pulse Resp B/P (MAP) Pulse Ox O2 Delivery O2 Flow Rate FiO2 03/16/20 11:33 92 Room Air 03/16/20 11:00 97.8 92 18 141/76 (97) 97.8 Weight Weight [ ] I.O. Intake and Output Intake and Output 03/16/20 07:00 Intake Total 1005 ml Balance 1005 ml Intake Oral 480 ml Other 525 ml # Voids 4 Labs Labs Laboratory Tests Test 03/15/20 15:15 03/16/20 02:51 Sodium Level 123 mmol/L (136-145) 126 mmol/L (136-145) Potassium Level 3.6 mmol/L (3.5-5.1) 3.0 mmol/L (3.5-5.1) Chloride Level 87 mmol/L (98-107) 88 mmol/L (98-107) Carbon Dioxide Level 22 mmol/L (21-32) 26 mmol/L (21-32) Anion Gap 14 (6-14) 12 (6-14) Blood Urea Nitrogen 30 mg/dL (8-26) 29 mg/dL (8-26) Creatinine 1.6 mg/dL (0.7-1.3) 1.2 mg/dL (0.7-1.3) Estimated GFR (Cockcroft-Gault) 44.9 62.6 Glucose Level 154 mg/dL (70-99) 152 mg/dL (70-99) Calcium Level 8.5 mg/dL (8.5-10.1) 8.5 mg/dL (8.5-10.1) Review of Systems Constitutional: yes: other (UNABLE TO OBTAIN) Physical Exam General Appearance: no apparent distress Respiratory: decreased breath sounds Heart: S1S2 Abdomen: soft, bowel sounds present Genitourinary: bladder flat Extremities: pulses present Neurology: confused Assessment Assessment IMP HYPONATREMIA-BETTER LIVER FAILURE ETOH ABUSE HX MET ENCEPHALOPATHY HYPOKALEMIA-BETTER HYPOMAGNESEMIA-BETTER PLAN CHANGE IVF TO NS GI EVAL AND TX BANANA BAG POOR PROGNOSIS ALDACTONE D/W ATTENDING HASEEB JOINER MD March 16, 2020 12:29
[2020-03-16] MEDS: SPIRONOLACTONE 25 MG TABLET PO SCH ×2 (12:30→21:00)
--- NOTE | 2020-03-16 12:38 | PDOC2 ---
GI CONSULT Reason For Consult: liver failure HPI: HPI: 54 y/o male admitted 03/14 - according to notes, brought to ER by EMS after PD did well person check. H/o alcohol abuse w/ some sort of previous eval at [facility]. Noted w/ hyponatremia, hyperbilirubinemia, coagulopathy, hyperammonemia, DEENA, macrocytic anemia (normal B12), and mildly elevated lipase. Viral hepatitis panel negative. Imaging w/ fatty liver. Getting spironolactone and prednisone. D/w nurse - IV fell out last night, slightly more alert today, ate a couple bites of breakfast, small stool yesterday. PMH: PMH: per chart: HTN, psoriasis, GERD, OA, depression/anxiety, right knee surgery FH: Family History: No pertinent hx (denies liver disease) Social History: Smoke: No ALCOHOL: heavy Drugs: None ROS: Difficult to obtain, denies pain. Vitals: Vitals: Vital Signs Date Time Temp Pulse Resp B/P (MAP) Pulse Ox O2 Delivery O2 Flow Rate FiO2 03/16/20 11:33 92 Room Air 03/16/20 11:00 97.8 92 18 141/76 (97) 97.8 Labs: Labs: Laboratory Tests Test 03/15/20 15:15 03/16/20 02:51 Sodium Level 123 mmol/L (136-145) 126 mmol/L (136-145) Potassium Level 3.6 mmol/L (3.5-5.1) 3.0 mmol/L (3.5-5.1) Chloride Level 87 mmol/L (98-107) 88 mmol/L (98-107) Carbon Dioxide Level 22 mmol/L (21-32) 26 mmol/L (21-32) Anion Gap 14 (6-14) 12 (6-14) Blood Urea Nitrogen 30 mg/dL (8-26) 29 mg/dL (8-26) Creatinine 1.6 mg/dL (0.7-1.3) 1.2 mg/dL (0.7-1.3) Estimated GFR (Cockcroft-Gault) 44.9 62.6 Glucose Level 154 mg/dL (70-99) 152 mg/dL (70-99) Calcium Level 8.5 mg/dL (8.5-10.1) 8.5 mg/dL (8.5-10.1) Allergies: Coded Allergies: No Known Drug Allergies (Unverified , 03/14/20) Medications: Current Medications Medications (Trade) Dose Ordered Sig/David Route PRN Reason Start Time Stop Time Status Last Admin Dose Admin Spironolactone (Aldactone) 25 mg DAILY PO 03/16/20 09:00 03/16/20 08:26 Albuterol/ Ipratropium (Duoneb) 3 ml RTQID NEB 03/16/20 08:30 03/16/20 11:32 Imaging: Imaging: CXR 03/14 IMPRESSION: No radiographic evidence of an acute cardiopulmonary process. Abd US 03/14 FINDINGS: Increased echogenicity of the liver. Hepatopedal flow within the portal vein. Gallbladder is unremarkable. No pericholecystic fluid or wall thickening. Common bile duct measures 4 mm. Right kidney measures 15.1 cm in length. No hydronephrosis. Left kidney measures 14.9 cm in length. No hydronephrosis. Spleen measures 10.2 cm in length. Visualized portions aorta and IVC are unremarkable. IMPRESSION: 1. Increased echogenicity of the liver, likely hepatic steatosis. 2. No hydronephrosis. 3. Normal sonographic appearance of the gallbladder, no evidence of acute cholecystitis. 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 Change thiamine order from 03/19 to today. Recheck labs. Will ask for records from [facility]. ?additional imaging Able to review some [facility] records - there in the past for diverticulitis. TEX CARTER March 16, 2020 12:38
[2020-03-16] MEDS ORDERED: LACTULOSE 20 GM/30 ML SOLUTION. PO PRN (12:45)
[2020-03-16 13:04] LABS: HEMATOCRIT 30.1 % (39.0-53.0); HEMOGLOBIN 10.1 g/dL (13.0-17.5); RED BLOOD COUNT 2.83 x10^6/uL (4.30-5.70); RED CELL DISTRIBUTION WIDTH 15.7 % (11.5-14.5); WHITE BLOOD COUNT 17.4 x10^3/uL (4.0-11.0)
[2020-03-16 13:13] LABS: PROTHROMBIN TIME PATIENT 17.5 SEC (11.7-14.0)
[2020-03-16] MEDS: LACTULOSE 20 GM/30 ML SOLUTION. PO SCH ×2 (13:33→21:00)
[2020-03-16] MEDS: THIAMINE 100 MG TABLET. PO SCH (13:34)
[2020-03-16] MEDS: FOLIC ACID 1 MG TABLET. PO SCH (13:34)
--- NOTE | 2020-03-16 13:43 | NUR ---
Did not administer patients 1230 dose of Aldactone due to patient receiving a dose at 0830 this AM.
[2020-03-16 13:45] LABS: ALBUMIN 2.2 g/dL (3.4-5.0); TOTAL BILIRUBIN 22.7 mg/dL (0.2-1.0); TOTAL PROTEIN 4.3 g/dL (6.4-8.2)
[2020-03-16 13:47] LABS: DIRECT BILIRUBIN 17.9 mg/dL (0.0-0.2)
[2020-03-16 15:00] VITALS: BP 143/78
[2020-03-16] MEDS ORDERED: MULTIVIT INFUSN,ADULT 4,VIT K 10 ML, THIAMINE INJ 100 MG, FOLIC ACID INJ 1 MG in IV NOR... IV SCH (16:00)
[2020-03-16 19:00] VITALS: BP 147/94
--- NOTE | 2020-03-16 21:00 | NUR ---
MEDICATION NOTE Pts HS meds were non administered d/t pt not being alert enough to take medications. Pt is arousable, but falls right back to sleep. Pt restless in bed. Pt received ativan PO prior to start of this shift. Pt pulled his IV out. New IV started x 2 attempts. Bed alarm on. Will monitor.
[2020-03-16 23:00] VITALS: BP 155/101
[2020-03-17 03:03] VITALS: BP 153/98
[2020-03-17 06:23] LABS: ALBUMIN 2.2 g/dL (3.4-5.0); ALBUMIN/GLOBULIN RATIO 0.9 (1.0-1.7); CALCIUM 8.6 mg/dL (8.5-10.1); GFR 77.3; POTASSIUM 3.3 mmol/L (3.5-5.1); TOTAL PROTEIN 4.7 g/dL (6.4-8.2)
[2020-03-17 06:25] LABS: TOTAL BILIRUBIN 26.5 mg/dL (0.2-1.0)
[2020-03-17 07:15] VITALS: BP 140/81
[2020-03-17] MEDS: IPRATRPIUM/ALBUTEROL 0.5/2.5MG 3 ML NEBU. NEB SCH ×4 (07:25→19:44)
[2020-03-17] MEDS: LACTULOSE 20 GM/30 ML SOLUTION. PO SCH ×2 (09:00→21:00)
[2020-03-17] MEDS: MULTIVITAMIN with MINERAL TABLET. PO SCH (09:00)
[2020-03-17] MEDS: prednisoLONE 15 MG/5 ML ORAL SOLUTION. PO SCH (09:00)
[2020-03-17] MEDS: THIAMINE 100 MG TABLET. PO SCH (09:00)
[2020-03-17] MEDS: SPIRONOLACTONE 25 MG TABLET PO SCH ×2 (09:00→21:00)
[2020-03-17] MEDS: FOLIC ACID 1 MG TABLET. PO SCH (09:00)
[2020-03-17 10:26] VITALS: BP 106/75
--- NOTE | 2020-03-17 11:53 | PDOC ---
SUBJECTIVE ROS Stable OBJECTIVE Vital Signs Vital Signs Date Time Temp Pulse Resp B/P (MAP) Pulse Ox O2 Delivery O2 Flow Rate FiO2 03/17/20 11:07 93 Room Air 03/17/20 10:26 97.5 86 18 106/75 (85) 97.5 I & 0 Intake and Output 03/17/20 07:00 Intake Total 1120 ml Balance 1120 ml Intake Oral 120 ml IV Total 1000 ml # Voids 7 PHYSICAL EXAM Physical Exam GEN.: No apparent distress, arouses to stimuli HEENT: OM moist , Icterus+ NECK: Supple. LUNGS: Clear to auscultation. HEART: RRR, S1, S2 present. ABDOMEN: Soft, nontender. EXTREMITIES: No edema n No costa Skin Icteric DIAGNOSIS/ASSESSMENT Assessment & Plan Hyponatremia - Improving Switched from 01/18 to NS on 03/16 Supportive care, strict I/O DEENA sec to Vol Depletion, Improved with IVF Liver Failure - Per GI Increased echogenicity of the liver, likely hepatic steatosis on US Elevated LFT's/HyperBilirubinemia Hx of ETIOH abuse Met Encephalopathy HypoKalemia- replace as indicated H ypoMag - replace as needed COMMENT/RELEVANT DATA Meds Current Medications Medications (Trade) Dose Ordered Sig/David Start Time Stop Time Status Last Admin Dose Admin Acetaminophen (Tylenol) 650 mg PRN Q4HRS PRN 03/14/20 15:30 Albuterol Sulfate (Ventolin Neb Soln) 2.5 mg PRN Q4HRS PRN 03/14/20 15:30 Albuterol/ Ipratropium (Duoneb) 3 ml RTQID 03/16/20 08:30 03/17/20 11:07 3 ML Chlordiazepoxide (Librium) 100 mg PRN Q1HR PRN 03/14/20 15:30 Clonidine HCl (Catapres) 0.1 mg PRN Q6HRS PRN 03/14/20 15:30 Dextrose/Lactated Ringer's 1,000 ml @ 125 mls/hr 1X ONCE 03/14/20 15:30 03/14/20 17:31 DC Dextrose/Sodium Chloride 1,000 ml @ 75 mls/hr 1X ONCE 03/15/20 11:30 03/16/20 00:49 DC 03/15/20 11:33 75 MLS/HR Diphenhydramine HCl (Benadryl) 25 mg PRN Q4HRS PRN 03/14/20 15:30 Docusate Sodium (Colace) 100 mg PRN BID PRN 03/14/20 15:30 Enoxaparin Sodium (Lovenox 40mg Syringe) 40 mg Q24H 03/14/20 21:00 03/15/20 10:27 DC 03/14/20 20:11 40 MG Folic Acid (Folic Acid) 1 mg DAILY 03/16/20 13:00 03/16/20 13:34 1 MG Guaifenesin (Robitussin) 200 mg PRN Q4HRS PRN 03/14/20 15:30 Haloperidol Lactate (Haldol Inj) 5 mg PRN Q4HRS PRN 03/16/20 10:45 Lactulose (Lactulose) 20 gm PRN BID PRN 03/16/20 12:45 Lorazepam (Ativan Inj) 4 mg PRN Q1HR PRN 03/16/20 10:45 Lorazepam (Ativan) 8 mg PRN Q1HR PRN 03/16/20 10:45 Magnesium Sulfate 100 ml @ 25 mls/hr 1X ONCE 03/14/20 18:00 03/14/20 21:59 DC 03/14/20 18:55 25 MLS/HR Magnesium Sulfate/ Dextrose 100 ml @ 100 mls/hr 1X ONCE 03/14/20 15:00 03/14/20 15:59 DC 03/14/20 16:03 100 MLS/HR Multivitamins (Thera M Plus) 1 tab DAILY 03/17/20 09:00 Multivitamins 10 ml/Thiamine HCl 100 mg/Folic Acid 1 mg/Sodium Chloride 1,011.2 ml @ 100 mls/ hr DAILY 03/16/20 16:00 03/17/20 07:21 DC 03/16/20 17:34 100 MLS/HR Ondansetron HCl (Zofran) 4 mg PRN Q4HRS PRN 03/14/20 15:30 Potassium Chloride/Water 100 ml @ 50 mls/hr Q2H 03/14/20 17:30 03/14/20 21:29 DC 03/14/20 20:11 50 MLS/HR Potassium Chloride (Klor-Con) 40 meq 1X ONCE 03/16/20 10:45 03/16/20 10:46 DC 03/16/20 13:33 40 MEQ Prednisone (Prelone Oral Soln) 40 mg DAILY 03/14/20 20:00 03/16/20 08:26 40 MG Sodium Chloride 500 ml @ 50 mls/hr 1X ONCE 03/14/20 23:30 03/15/20 09:29 DC 03/15/20 00:22 50 MLS/HR Spironolactone (Aldactone) 25 mg BID 03/16/20 12:30 Thiamine Mononitrate (Vitamin B-1) 100 mg DAILY 03/16/20 12:45 03/16/20 13:34 100 MG Zolpidem Tartrate (Ambien) 5 mg PRN QHS PRN 03/14/20 15:30 Lab Laboratory Tests Test 03/17/20 03:40 Sodium Level 130 mmol/L (136-145) Potassium Level 3.3 mmol/L (3.5-5.1) Chloride Level 92 mmol/L (98-107) Carbon Dioxide Level 27 mmol/L (21-32) Anion Gap 11 (6-14) Blood Urea Nitrogen 26 mg/dL (8-26) Creatinine 1.0 mg/dL (0.7-1.3) Estimated GFR (Cockcroft-Gault) 77.3 BUN/Creatinine Ratio 26 (6-20) Glucose Level 116 mg/dL (70-99) Calcium Level 8.6 mg/dL (8.5-10.1) Magnesium Level 1.9 mg/dL (1.8-2.4) Total Bilirubin 26.5 mg/dL (0.2-1.0) Aspartate Amino Transf (AST/SGOT) 254 U/L (15-37) Alanine Aminotransferase (ALT/SGPT) 102 U/L (16-63) Alkaline Phosphatase 384 U/L (46-116) Total Protein 4.7 g/dL (6.4-8.2) Albumin 2.2 g/dL (3.4-5.0) Albumin/Globulin Ratio 0.9 (1.0-1.7) Results All relevant outside records, renal labs, imaging studies, telemetry/EKG's were reviewed. TRUDI HIGGINS MD March 17, 2020 11:53
--- NOTE | 2020-03-17 12:00 | NUR ---
PT UNABLE TO STAY AWAKE LONG ENOUGH TO SAFELY SWALLOW MEDICATIONS. PT AROUSES TO VERBAL STIMULI. PT RESTLESS, CONSTANTLY MOVING IN HIS BED.
--- NOTE | 2020-03-17 12:04 | PDOC ---
[employer] PROGRESS NOTE Chief Complaint Chief Complaint Acute alcoholic hepatitis, Maddrey score is 47, scores greater than 32 are poor prognosis. Acute renal failure most likely prerenal etiology since patient has had very poor oral intake over the last 72 hours. Severe hyponatremia Hypomagnesemia Hypokalemia Hypoglycemia Elevated Lipase, doubt pancreatitis given that his symptoms most likely are related to his alcoholic hepatitis Severe alcoholism History of Present Illness History of Present Illness 03/17/2020 Patient seen and examined He is still jaundiced and confused Discussed with RN Chart reviewed 03/16/2020 Patient seen and examined He is pleasantly confused Discussed with RN Chart Vitals/I&O Vitals/I&O: Vital Signs Date Time Temp Pulse Resp B/P (MAP) Pulse Ox O2 Delivery O2 Flow Rate FiO2 03/17/20 11:07 93 Room Air 03/17/20 10:26 97.5 86 18 106/75 (85) 97.5 I & O 03/16/20 03/16/20 03/17/20 15:00 23:00 07:00 Intake Total 120 ml 1000 ml Balance 120 ml 1000 ml Physical Exam General: mild distress, Other (Pleasantly confused) Heart: Regular rate Lungs: Clear Abdomen: Normal bowel sounds, Soft, No tenderness Skin: No rashes, No breakdown, Other (JAUNDICED) Labs Labs: Laboratory Tests Test 03/17/20 03:40 Sodium Level 130 mmol/L (136-145) Potassium Level 3.3 mmol/L (3.5-5.1) Chloride Level 92 mmol/L (98-107) Carbon Dioxide Level 27 mmol/L (21-32) Anion Gap 11 (6-14) Blood Urea Nitrogen 26 mg/dL (8-26) Creatinine 1.0 mg/dL (0.7-1.3) Estimated GFR (Cockcroft-Gault) 77.3 BUN/Creatinine Ratio 26 (6-20) Glucose Level 116 mg/dL (70-99) Calcium Level 8.6 mg/dL (8.5-10.1) Magnesium Level 1.9 mg/dL (1.8-2.4) Total Bilirubin 26.5 mg/dL (0.2-1.0) Aspartate Amino Transf (AST/SGOT) 254 U/L (15-37) Alanine Aminotransferase (ALT/SGPT) 102 U/L (16-63) Alkaline Phosphatase 384 U/L (46-116) Total Protein 4.7 g/dL (6.4-8.2) Albumin 2.2 g/dL (3.4-5.0) Albumin/Globulin Ratio 0.9 (1.0-1.7) Assessment and Plan Assessmemt and Plan Problems Medical Problems: (1) Alcoholic cirrhosis Status: Acute (2) Hyponatremia Status: Acute (3) Renal failure Status: Acute (4) Weakness Status: Acute Acute alcoholic hepatitis, Maddrey score is 47, scores greater than 32 are poor prognosis. Acute renal failure most likely prerenal etiology since patient has had very poor oral intake over the last 72 hours. Severe hyponatremia Hypomagnesemia Hypokalemia Hypoglycemia Elevated Lipase, doubt pancreatitis given that his symptoms most likely are related to his alcoholic hepatitis Severe alcoholism Plan Long-term prognosis seems very poor as he does have liver failure from alcohol issues For now; Trend his electrolytes Alcohol withdrawal protocol DVT prophylaxis Full code Appreciate subspecialist input We will probably try to arrange hospice next week? Comment Review of Relevant I have reviewed the following items hesahm (where applicable) has been applied. Medications: Current Medications Medications (Trade) Dose Ordered Sig/David Route PRN Reason Start Time Stop Time Status Last Admin Dose Admin Folic Acid (Folic Acid) 1 mg DAILY PO 03/16/20 13:00 03/16/20 13:34 Thiamine Mononitrate (Vitamin B-1) 100 mg DAILY PO 03/16/20 12:45 03/16/20 13:34 Lactulose (Lactulose) 20 gm BID PO 03/16/20 13:00 03/16/20 13:33 Multivitamins 10 ml/Thiamine HCl 100 mg/Folic Acid 1 mg/Sodium Chloride 1,011.2 ml @ 100 mls/ hr DAILY IV 03/16/20 16:00 03/17/20 07:21 DC 03/16/20 17:34 CASTCAMPBELL BURCH K III DO March 17, 2020 12:04
[2020-03-17 14:47] VITALS: BP 106/63
[2020-03-17 19:00] VITALS: BP 108/70
[2020-03-17 22:57] VITALS: BP 138/92
[2020-03-18 03:10] VITALS: BP 97/53
[2020-03-18] MEDS: IPRATRPIUM/ALBUTEROL 0.5/2.5MG 3 ML NEBU. NEB SCH ×4 (07:12→20:46)
[2020-03-18 07:15] VITALS: BP 132/75
[2020-03-18] MEDS: FOLIC ACID 1 MG TABLET. PO SCH (09:00)
[2020-03-18] MEDS: THIAMINE 100 MG TABLET. PO SCH (09:00)
[2020-03-18] MEDS: MULTIVITAMIN with MINERAL TABLET. PO SCH (09:00)
[2020-03-18] MEDS: SPIRONOLACTONE 25 MG TABLET PO SCH ×2 (09:00→21:54)
[2020-03-18 10:33] VITALS: BP 126/79
[2020-03-18] MEDS: LACTULOSE 20 GM/30 ML SOLUTION. PO SCH ×2 (10:34→21:48)
[2020-03-18] MEDS: prednisoLONE 15 MG/5 ML ORAL SOLUTION. PO SCH (10:37)
--- NOTE | 2020-03-18 11:54 | PDOC ---
SUBJECTIVE ROS Stable OBJECTIVE Vital Signs Vital Signs Date Time Temp Pulse Resp B/P (MAP) Pulse Ox O2 Delivery O2 Flow Rate FiO2 03/18/20 10:33 98.0 56 20 126/79 (95) 94 Nasal Cannula 2.0 98.0 I & 0 Intake and Output 03/18/20 07:00 Intake Total 0 ml Balance 0 ml Intake Oral 0 ml # Voids 8 PHYSICAL EXAM Physical Exam GEN.: No apparent distress, arouses to stimuli HEENT: OM moist , Icterus+ NECK: Supple. LUNGS: Clear to auscultation. HEART: RRR, S1, S2 present. ABDOMEN: Soft, nontender. EXTREMITIES: No edema n No costa Skin Icteric DIAGNOSIS/ASSESSMENT Assessment & Plan Hyponatremia - Improving Switched from 01/18 to NS on 03/16 , No labs this am Supportive care, strict I/O, daily BMP DEENA sec to Vol Depletion, Improved with IVF Liver Failure - Per GI Increased echogenicity of the liver, likely hepatic steatosis on US Elevated LFT's/HyperBilirubinemia Hx of ETIOH abuse Met Encephalopathy HypoKalemia- replace as indicated H ypoMag - replace as needed COMMENT/RELEVANT DATA Meds Current Medications Medications (Trade) Dose Ordered Sig/David Start Time Stop Time Status Last Admin Dose Admin Acetaminophen (Tylenol) 650 mg PRN Q4HRS PRN 03/14/20 15:30 Albuterol Sulfate (Ventolin Neb Soln) 2.5 mg PRN Q4HRS PRN 03/14/20 15:30 Albuterol/ Ipratropium (Duoneb) 3 ml RTQID 03/16/20 08:30 03/18/20 07:12 3 ML Chlordiazepoxide (Librium) 100 mg PRN Q1HR PRN 03/14/20 15:30 Clonidine HCl (Catapres) 0.1 mg PRN Q6HRS PRN 03/14/20 15:30 Dextrose/Lactated Ringer's 1,000 ml @ 125 mls/hr 1X ONCE 03/14/20 15:30 03/14/20 17:31 DC Dextrose/Sodium Chloride 1,000 ml @ 75 mls/hr 1X ONCE 03/15/20 11:30 03/16/20 00:49 DC 03/15/20 11:33 75 MLS/HR Diphenhydramine HCl (Benadryl) 25 mg PRN Q4HRS PRN 03/14/20 15:30 Docusate Sodium (Colace) 100 mg PRN BID PRN 03/14/20 15:30 Enoxaparin Sodium (Lovenox 40mg Syringe) 40 mg Q24H 03/14/20 21:00 03/15/20 10:27 DC 03/14/20 20:11 40 MG Folic Acid (Folic Acid) 1 mg DAILY 03/16/20 13:00 03/16/20 13:34 1 MG Guaifenesin (Robitussin) 200 mg PRN Q4HRS PRN 03/14/20 15:30 Haloperidol Lactate (Haldol Inj) 5 mg PRN Q4HRS PRN 03/16/20 10:45 Lactulose (Lactulose) 20 gm PRN BID PRN 03/16/20 12:45 Lorazepam (Ativan Inj) 4 mg PRN Q1HR PRN 03/16/20 10:45 Lorazepam (Ativan) 8 mg PRN Q1HR PRN 03/16/20 10:45 Magnesium Sulfate 100 ml @ 25 mls/hr 1X ONCE 03/14/20 18:00 03/14/20 21:59 DC 03/14/20 18:55 25 MLS/HR Magnesium Sulfate/ Dextrose 100 ml @ 100 mls/hr 1X ONCE 03/14/20 15:00 03/14/20 15:59 DC 03/14/20 16:03 100 MLS/HR Multivitamins (Thera M Plus) 1 tab DAILY 03/17/20 09:00 Multivitamins 10 ml/Thiamine HCl 100 mg/Folic Acid 1 mg/Sodium Chloride 1,011.2 ml @ 100 mls/ hr DAILY 03/16/20 16:00 03/17/20 07:21 DC 03/16/20 17:34 100 MLS/HR Ondansetron HCl (Zofran) 4 mg PRN Q4HRS PRN 03/14/20 15:30 Potassium Chloride/Water 100 ml @ 50 mls/hr Q2H 03/14/20 17:30 03/14/20 21:29 DC 03/14/20 20:11 50 MLS/HR Potassium Chloride (Klor-Con) 40 meq 1X ONCE 03/16/20 10:45 03/16/20 10:46 DC 03/16/20 13:33 40 MEQ Prednisone (Prelone Oral Soln) 40 mg DAILY 03/14/20 20:00 03/18/20 10:37 40 MG Sodium Chloride 500 ml @ 50 mls/hr 1X ONCE 03/14/20 23:30 03/15/20 09:29 DC 03/15/20 00:22 50 MLS/HR Spironolactone (Aldactone) 25 mg BID 03/16/20 12:30 Thiamine Mononitrate (Vitamin B-1) 100 mg DAILY 03/16/20 12:45 03/16/20 13:34 100 MG Zolpidem Tartrate (Ambien) 5 mg PRN QHS PRN 03/14/20 15:30 Results All relevant outside records, renal labs, imaging studies, telemetry/EKG's were reviewed. TRUDI HIGGINS MD March 18, 2020 11:54
--- NOTE | 2020-03-18 12:36 | PDOC ---
[employer] PROGRESS NOTE Chief Complaint Chief Complaint Acute alcoholic hepatitis, Maddrey score is 47, scores greater than 32 are poor prognosis. Acute renal failure most likely prerenal etiology since patient has had very poor oral intake over the last 72 hours. Severe hyponatremia Hypomagnesemia Hypokalemia Hypoglycemia Elevated Lipase, doubt pancreatitis given that his symptoms most likely are related to his alcoholic hepatitis Severe alcoholism History of Present Illness History of Present Illness 03/18/2020 Patient seen and examined He remains very confused and jaundiced Has mitts on for patient safety Chart reviewed Discussed with RN We will probably arrange hospice soon 03/17/2020 Patient seen and examined He is still jaundiced and confused Discussed with RN Chart reviewed 03/16/2020 Patient seen and examined He is pleasantly confused Discussed with RN Chart Vitals/I&O Vitals/I&O: Vital Signs Date Time Temp Pulse Resp B/P (MAP) Pulse Ox O2 Delivery O2 Flow Rate FiO2 03/18/20 10:33 98.0 56 20 126/79 (95) 94 Nasal Cannula 2.0 98.0 I & O 03/17/20 03/17/20 03/18/20 15:00 23:00 07:00 Intake Total 0 ml Balance 0 ml Physical Exam General: mild distress, Other (Pleasantly confused) Heart: Regular rate Lungs: Clear Abdomen: Normal bowel sounds, Soft, No tenderness Skin: No rashes, No breakdown, Other (JAUNDICED) Assessment and Plan Assessmemt and Plan Problems Medical Problems: (1) Alcoholic cirrhosis Status: Acute (2) Hyponatremia Status: Acute (3) Renal failure Status: Acute (4) Weakness Status: Acu 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 Acute renal failure most likely prerenal etiology since patient has had very poor oral intake over the last 72 hours. Severe hyponatremia Hypomagnesemia Hypokalemia Hypoglycemia Elevated Lipase, doubt pancreatitis given that his symptoms most likely are related to his alcoholic hepatitis Severe alcoholism Plan Consult social work case manager to arrange hospice Long-term prognosis seems very poor as he does have liver failure from alcohol issues For now; Trend his electrolytes Alcohol withdrawal protocol DVT prophylaxis Full code Appreciate subspecialist input Comment Review of Relevant I have reviewed the following items hesham (where applicable) has been applied. CAMPBELL GANT III DO March 18, 2020 12:36
[2020-03-18 15:29] VITALS: BP 145/91
[2020-03-18 19:00] VITALS: BP 126/72
[2020-03-18 23:00] VITALS: BP 138/84
[2020-03-19 03:20] VITALS: BP 144/101
[2020-03-19 05:38] LABS: CALCIUM 8.6 mg/dL (8.5-10.1); CREATININE 1.1 mg/dL (0.7-1.3); GFR 69.2; POTASSIUM 3.5 mmol/L (3.5-5.1)
[2020-03-19 07:00] VITALS: BP 132/82
[2020-03-19] MEDS: IPRATRPIUM/ALBUTEROL 0.5/2.5MG 3 ML NEBU. NEB SCH ×4 (07:02→20:00)
[2020-03-19] MEDS ORDERED: THIAMINE 100 MG TABLET. PO SCH (09:00)
[2020-03-19] MEDS: THIAMINE 100 MG TABLET. PO SCH (09:15)
[2020-03-19] MEDS: LACTULOSE 20 GM/30 ML SOLUTION. PO SCH ×2 (09:15→21:00)
[2020-03-19] MEDS: MULTIVITAMIN with MINERAL TABLET. PO SCH (09:15)
[2020-03-19] MEDS: SPIRONOLACTONE 25 MG TABLET PO SCH ×2 (09:15→21:00)
[2020-03-19] MEDS: FOLIC ACID 1 MG TABLET. PO SCH (09:15)
[2020-03-19] MEDS: prednisoLONE 15 MG/5 ML ORAL SOLUTION. PO SCH (09:16)
--- NOTE | 2020-03-19 09:41 | PDOC ---
Objective: Objective: D/w nurse and reviewed chart - hospice discussed? Plans to pass meds now, not sure if he's willing/able to take, won't leave O2 on, etc. Stools charted yesterday and today. Vital Signs: Vital Signs Date Time Temp Pulse Resp B/P (MAP) Pulse Ox O2 Delivery O2 Flow Rate FiO2 03/19/20 07:04 95 Nasal Cannula 2.0 03/19/20 07:00 97.9 86 20 132/82 (99) 97.9 Labs: Laboratory Tests Test 03/19/20 03:55 Sodium Level 140 mmol/L Potassium Level 3.5 mmol/L Chloride Level 100 mmol/L Carbon Dioxide Level 27 mmol/L Anion Gap 13 Blood Urea Nitrogen 28 mg/dL Creatinine 1.1 mg/dL Estimated GFR (Cockcroft-Gault) 69.2 Glucose Level 99 mg/dL Calcium Level 8.6 mg/dL PE: GEN: chronically ill ABD: large SKIN: +worsening jaundice +psoriasis NEURO/PSYCH: confused A/P: Alcoholic liver disease -- With most recent labs, MELD is 24 (~20% 3 month mortality). Reviewed w/ Dr. Livingston - hospice discussion supported. Hemodynamically unstable?: No Is patient in severe pain?: No Is NPO status required?: No TEX CARTER March 19, 2020 09:41
--- NOTE | 2020-03-19 09:53 | PDOC ---
SUBJECTIVE ROS No change OBJECTIVE Vital Signs Vital Signs Date Time Temp Pulse Resp B/P (MAP) Pulse Ox O2 Delivery O2 Flow Rate FiO2 03/19/20 07:04 95 Nasal Cannula 2.0 03/19/20 07:00 97.9 86 20 132/82 (99) 97.9 I & 0 Intake and Output 03/19/20 07:00 Intake Total 150 ml Balance 150 ml Intake Oral 150 ml # Voids 5 # Bowel Movements 1 PHYSICAL EXAM Physical Exam GEN.: No apparent distress, arouses to stimuli HEENT: OM moist , Icterus+ NECK: Supple. LUNGS: Clear to auscultation. HEART: RRR, S1, S2 present. ABDOMEN: Soft, nontender. EXTREMITIES: No edema n No costa Skin Icteric Neuro Confused DIAGNOSIS/ASSESSMENT Assessment & Plan Hyponatremia - Resolved DEENA sec to Vol Depletion, Improved with IVF Liver Failure - GI recommends Hospice MELD 24 (~20% 3 month mortality). Increased echogenicity of the liver, likely hepatic steatosis on US Elevated LFT's/HyperBilirubinemia Hx of ETIOH abuse Met Encephalopathy HypoKalemia- replace as indicated H ypoMag - replace as needed COMMENT/RELEVANT DATA Meds Current Medications Medications (Trade) Dose Ordered Sig/David Start Time Stop Time Status Last Admin Dose Admin Acetaminophen (Tylenol) 650 mg PRN Q4HRS PRN 03/14/20 15:30 Albuterol Sulfate (Ventolin Neb Soln) 2.5 mg PRN Q4HRS PRN 03/14/20 15:30 Albuterol/ Ipratropium (Duoneb) 3 ml RTQID 03/16/20 08:30 03/19/20 07:02 3 ML Chlordiazepoxide (Librium) 100 mg PRN Q1HR PRN 03/14/20 15:30 Clonidine HCl (Catapres) 0.1 mg PRN Q6HRS PRN 03/14/20 15:30 03/19/20 03:12 0.1 MG Dextrose/Lactated Ringer's 1,000 ml @ 125 mls/hr 1X ONCE 03/14/20 15:30 03/14/20 17:31 DC Dextrose/Sodium Chloride 1,000 ml @ 75 mls/hr 1X ONCE 03/15/20 11:30 03/16/20 00:49 DC 03/15/20 11:33 75 MLS/HR Diphenhydramine HCl (Benadryl) 25 mg PRN Q4HRS PRN 03/14/20 15:30 Docusate Sodium (Colace) 100 mg PRN BID PRN 03/14/20 15:30 Enoxaparin Sodium (Lovenox 40mg Syringe) 40 mg Q24H 03/14/20 21:00 03/15/20 10:27 DC 03/14/20 20:11 40 MG Folic Acid (Folic Acid) 1 mg DAILY 03/16/20 13:00 03/19/20 09:15 1 MG Guaifenesin (Robitussin) 200 mg PRN Q4HRS PRN 03/14/20 15:30 Haloperidol Lactate (Haldol Inj) 5 mg PRN Q4HRS PRN 03/16/20 10:45 Lactulose (Lactulose) 20 gm PRN BID PRN 03/16/20 12:45 Lorazepam (Ativan Inj) 4 mg PRN Q1HR PRN 03/16/20 10:45 Lorazepam (Ativan) 8 mg PRN Q1HR PRN 03/16/20 10:45 Magnesium Sulfate 100 ml @ 25 mls/hr 1X ONCE 03/14/20 18:00 03/14/20 21:59 DC 03/14/20 18:55 25 MLS/HR Magnesium Sulfate/ Dextrose 100 ml @ 100 mls/hr 1X ONCE 03/14/20 15:00 03/14/20 15:59 DC 03/14/20 16:03 100 MLS/HR Multivitamins (Thera M Plus) 1 tab DAILY 03/17/20 09:00 03/19/20 09:15 1 TAB Multivitamins 10 ml/Thiamine HCl 100 mg/Folic Acid 1 mg/Sodium Chloride 1,011.2 ml @ 100 mls/ hr DAILY 03/16/20 16:00 03/17/20 07:21 DC 03/16/20 17:34 100 MLS/HR Ondansetron HCl (Zofran) 4 mg PRN Q4HRS PRN 03/14/20 15:30 Potassium Chloride/Water 100 ml @ 50 mls/hr Q2H 03/14/20 17:30 03/14/20 21:29 DC 03/14/20 20:11 50 MLS/HR Potassium Chloride (Klor-Con) 40 meq 1X ONCE 03/16/20 10:45 03/16/20 10:46 DC 03/16/20 13:33 40 MEQ Prednisone (Prelone Oral Soln) 40 mg DAILY 03/14/20 20:00 03/19/20 09:16 40 MG Sodium Chloride 500 ml @ 50 mls/hr 1X ONCE 03/14/20 23:30 03/15/20 09:29 DC 03/15/20 00:22 50 MLS/HR Spironolactone (Aldactone) 25 mg BID 03/16/20 12:30 03/19/20 09:15 25 MG Thiamine Mononitrate (Vitamin B-1) 100 mg DAILY 03/16/20 12:45 03/19/20 09:15 100 MG Zolpidem Tartrate (Ambien) 5 mg PRN QHS PRN 03/14/20 15:30 Lab Laboratory Tests Test 03/19/20 03:55 Sodium Level 140 mmol/L (136-145) Potassium Level 3.5 mmol/L (3.5-5.1) Chloride Level 100 mmol/L (98-107) Carbon Dioxide Level 27 mmol/L (21-32) Anion Gap 13 (6-14) Blood Urea Nitrogen 28 mg/dL (8-26) Creatinine 1.1 mg/dL (0.7-1.3) Estimated GFR (Cockcroft-Gault) 69.2 Glucose Level 99 mg/dL (70-99) Calcium Level 8.6 mg/dL (8.5-10.1) Results All relevant outside records, renal labs, imaging studies, telemetry/EKG's were reviewed. TRUDI HIGGINS MD March 19, 2020 09:53
--- NOTE | 2020-03-19 10:16 | NUR ---
MICHELLE following. Discussed with RN, pt still confused, no contacts, no next of kin. Physician notes discussing possible hospice. MICHELLE will continue to follow for discharge planning. If pt still very confused, will not be able to sign himself onto hospice. Addendum: 03/19/20 at 1346 by SAMIRA MARTINEZ ED report states pt was brought to [facility] via EMS after police department were called to do a well person check. MICHELLE contacted [facility] to determine if they can provide name of who requested the well person check. Channeling Machine Runner at the PD advised they will have an office contact MICHELLE back as there was no information on a call in for that well person check (however it was done). MICHELLE spoke with Vipin at [facility], 2 physicians can certify pt is terminally ill, then it will have to go through the courts to get a guardianship in order for pt to be signed onto hospice. Pt is self pay, hospice will be vilma. MICHELLE awaiting call back from [facility] harbor police launch commander. Addendum: 03/19/20 at 1356 by SAMIRA MARTINEZ [facility] officer contacted MICHELLE back, they have a Deidra Garcia ([phone]) listed as pt's . MICHELLE notified RN and Dr. Pratt, requested Dr. Pratt contact Deidra to discuss pt. MICHELLE will continue to follow.
--- NOTE | 2020-03-19 10:57 | NUR ---
Attempting to climb out of bed, bed alarm activated, talking incoherently, attempted to reorient, oxygen in place, incontinent of bowel/bladder, brief changed, Ativan IVP given, alarm reactivated, HOB elevated, side rails up
[2020-03-19 11:00] VITALS: BP 124/73
--- NOTE | 2020-03-19 12:37 | PDOC ---
[employer] PROGRESS NOTE Chief Complaint Chief Complaint Acute alcoholic hepatitis, Maddrey score is 47, scores greater than 32 are poor prognosis. Acute renal failure most likely prerenal etiology since patient has had very poor oral intake over the last 72 hours. Severe hyponatremia Hypomagnesemia Hypokalemia Hypoglycemia Elevated Lipase, doubt pancreatitis given that his symptoms most likely are related to his alcoholic hepatitis Severe alcoholism History of Present Illness History of Present Illness 03/19/2020 Patient seen and examined He appears to be extremely encephalopathic He is very jaundiced His abdomen is distended with ascites He has mitts for patient comfort Discussed with case management Discussed with RN Chart reviewed We are trying to arrange hospice 03/18/2020 Patient seen and examined He remains very confused and jaundiced Has mitts on for patient safety Chart reviewed Discussed with RN We will probably arrange hospice soon 03/17/2020 Patient seen and examined He is still jaundiced and confused Discussed with RN Chart reviewed 03/16/2020 Patient seen and examined He is pleasantly confused Discussed with RN Chart Vitals/I&O Vitals/I&O: Vital Signs Date Time Temp Pulse Resp B/P (MAP) Pulse Ox O2 Delivery O2 Flow Rate FiO2 03/19/20 11:22 Nasal Cannula 2.0 03/19/20 11:00 98.0 92 20 124/73 (90) 93 98.0 I & O 03/18/20 03/18/20 03/19/20 15:00 23:00 07:00 Intake Total 100 ml 50 ml Balance 100 ml 50 ml Physical Exam General: mild distress, Other (Pleasantly confused) Heart: Regular rate Lungs: Clear Abdomen: Normal bowel sounds, Soft, No tenderness Skin: No rashes, No breakdown, Other (JAUNDICED) Labs Labs: Laboratory Tests Test 03/19/20 03:55 Sodium Level 140 mmol/L (136-145) Potassium Level 3.5 mmol/L (3.5-5.1) Chloride Level 100 mmol/L (98-107) Carbon Dioxide Level 27 mmol/L (21-32) Anion Gap 13 (6-14) Blood Urea Nitrogen 28 mg/dL (8-26) Creatinine 1.1 mg/dL (0.7-1.3) Estimated GFR (Cockcroft-Gault) 69.2 Glucose Level 99 mg/dL (70-99) Calcium Level 8.6 mg/dL (8.5-10.1) Assessment and Plan Assessmemt and Plan Problems Medical Problems: (1) Alcoholic cirrhosis Status: Acute (2) Hyponatremia Status: Acute (3) Renal failure Status: Acute (4) Weakness Status: Acute 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 Acute renal failure most likely prerenal etiology since patient has had very poor oral intake over the last 72 hours. Severe hyponatremia Hypomagnesemia Hypokalemia Hypoglycemia Elevated Lipase, doubt pancreatitis given that his symptoms most likely are related to his alcoholic hepatitis Severe alcoholism Plan Consulted social work lecturer to arrange hospice (but he does not have insurance) I put in an order for DNR as he cannot make any decisions on his own and I am not aware of any family members around Long-term prognosis seems very poor as he does have liver failure from alcohol issues For now; Trend his electrolytes Alcohol withdrawal protocol DVT prophylaxis We will probably move towards comfort measures soon Appreciate subspecialist input Supportive care Comment Review of Relevant I have reviewed the following items hesham (where applicable) has been applied. Hemodynamically unstable?: No Is patient in severe pain?: No Is NPO status required?: No CAMPBELL GANT III DO March 19, 2020 12:37
[2020-03-19 15:38] VITALS: BP 139/97
--- NOTE | 2020-03-19 15:42 | NUR ---
Will not keep oxygen on, HOB elevated, side rails up, disrobe frequently, continues to be incontinent
[2020-03-19 19:00] VITALS: BP 120/81
[2020-03-19 23:00] VITALS: BP 121/76
[2020-03-20 03:00] VITALS: BP 143/88
[2020-03-20 07:15] VITALS: BP 122/85
[2020-03-20] MEDS: IPRATRPIUM/ALBUTEROL 0.5/2.5MG 3 ML NEBU. NEB SCH ×4 (07:30→20:21)
[2020-03-20] MEDS: FOLIC ACID 1 MG TABLET. PO SCH (08:09)
[2020-03-20] MEDS: prednisoLONE 15 MG/5 ML ORAL SOLUTION. PO SCH (08:09)
[2020-03-20] MEDS: THIAMINE 100 MG TABLET. PO SCH (08:09)
[2020-03-20] MEDS: LACTULOSE 20 GM/30 ML SOLUTION. PO SCH ×2 (08:10→21:39)
[2020-03-20] MEDS: SPIRONOLACTONE 25 MG TABLET PO SCH ×2 (08:10→21:39)
[2020-03-20] MEDS: MULTIVITAMIN with MINERAL TABLET. PO SCH (08:28)
--- NOTE | 2020-03-20 08:37 | PDOC ---
PROGRESS NOTES Chief Complaint Chief Complaint IMPRESSION Acute alcoholic hepatitis, Maddrey score is 47, scores greater than 32 are poor prognosis. Acute renal failure most likely prerenal etiology since patient has had very poor oral intake over the last 72 hours. Severe hyponatremia Hypomagnesemia Hypokalemia Hypoglycemia Elevated Lipase, doubt pancreatitis given that his symptoms most likely are related to his alcoholic hepatitis Severe alcoholism 03/20 HOSPICE CONSULTED D/W RN History of Present Illness History of Present Illness 03/19/2020 Patient seen and examined He appears to be extremely encephalopathic He is very jaundiced His abdomen is distended with ascites He has mitts for patient comfort Discussed with case management Discussed with RN Chart reviewed We are trying to arrange hospice 03/18/2020 Patient seen and examined He remains very confused and jaundiced Has mitts on for patient safety Chart reviewed Discussed with RN We will probably arrange hospice soon 03/17/2020 Patient seen and examined He is still jaundiced and confused Discussed with RN Chart reviewed 03/16/2020 Patient seen and examined He is pleasantly confused Discussed with RN Chart Vitals Vitals Vital Signs Date Time Temp Pulse Resp B/P (MAP) Pulse Ox O2 Delivery O2 Flow Rate FiO2 03/20/20 07:33 92 Nasal Cannula 2.0 03/20/20 07:15 98.4 102 22 122/85 (97) 98.4 Physical Exam Physical Exam JAUNDICED, Confused General: No acute distress, mild distress, Other (Pleasantly confused) Heart: Regular rate Lungs: Clear Abdomen: Normal bowel sounds, Soft, No tenderness Skin: No rashes, No breakdown, Other (JAUNDICED) Labs LABS Exam: Ultrasound abdomen complete Indication: Hyperbilirubinemia/transaminitis Technique: Real-time grayscale and color Doppler images of the abdomen were obtained by the department ambulette driver. Comparisons: None FINDINGS: Increased echogenicity of the liver. Hepatopedal flow within the portal vein. Gallbladder is unremarkable. No pericholecystic fluid or wall thickening. Common bile duct measures 4 mm. Right kidney measures 15.1 cm in length. No hydronephrosis. Left kidney measures 14.9 cm in length. No hydronephrosis. Spleen measures 10.2 cm in length. Visualized portions aorta and IVC are unremarkable. IMPRESSION: 1. Increased echogenicity of the liver, likely hepatic steatosis. 2. No hydronephrosis. 3. Normal sonographic appearance of the gallbladder, no evidence of acute cholecystitis. Electronically signed by: Nivia Ely MD (03/14/2020 9:42 PM) [id number] DICTATED and SIGNED BY: NIVIA ELY MD DATE: 03/14/202141 Assessment and Plan Assessmemt and Plan Problems Medical Problems: (1) Alcoholic cirrhosis Status: Acute (2) Hyponatremia Status: Acute (3) Renal failure Status: Acute (4) Weakness Status: Acute Comment Review of Relevant I have reviewed the following items hesham (where applicable) has been applied. Labs Laboratory Tests Test 03/19/20 03:55 Sodium Level 140 mmol/L (136-145) Potassium Level 3.5 mmol/L (3.5-5.1) Chloride Level 100 mmol/L (98-107) Carbon Dioxide Level 27 mmol/L (21-32) Anion Gap 13 (6-14) Blood Urea Nitrogen 28 mg/dL (8-26) Creatinine 1.1 mg/dL (0.7-1.3) Estimated GFR (Cockcroft-Gault) 69.2 Glucose Level 99 mg/dL (70-99) Calcium Level 8.6 mg/dL (8.5-10.1) Medications Current Medications Sodium Chloride 1,000 ml @ 1,000 mls/hr Q1H IV Last administered on 03/14/20at 14:51; Start 03/14/20 at 13:54; Stop 03/14/20 at 14:53; Status DC Sodium Chloride 1,000 ml @ 100 mls/hr Q10H IV Last administered on 03/14/20at 16:07; Start 03/14/20 at 13:54; Stop 03/14/20 at 22:36; Status DC Magnesium Sulfate/ Dextrose 100 ml @ 100 mls/hr 1X ONCE IV Last administered on 03/14/20at 16:03; Start 03/14/20 at 15:00; Stop 03/14/20 at 15:59; Status DC Potassium Chloride (Klor-Con) 40 meq 1X ONCE PO Last administered on 03/14/20at 15:25; Start 03/14/20 at 15:00; Stop 03/14/20 at 15:01; Status DC Dextrose/Lactated Ringer's 1,000 ml @ 125 mls/hr 1X ONCE IV ; Start 03/14/20 at 15:30; Stop 03/14/20 at 17:31; Status DC Sodium Chloride 1,000 ml @ 100 mls/hr Q10H IV Last administered on 03/14/20at 16:40; Start 03/14/20 at 15:17; Stop 03/14/20 at 22:36; Status DC Multivitamins 10 ml/Thiamine HCl 100 mg/Folic Acid 1 mg/Sodium Chloride 1,011.2 ml @ 125 mls/ hr 1X ONCE IV Last administered on 03/14/20at 15:40; Start 03/14/20 at 15:30; Stop 03/14/20 at 23:35; Status DC Ondansetron HCl (Zofran) 4 mg PRN Q4HRS PRN IV NAUSEA/VOMITING; Start 03/14/20 at 15:30 Zolpidem Tartrate (Ambien) 5 mg PRN QHS PRN PO INSOMNIA; Start 03/14/20 at 15:30 Acetaminophen (Tylenol) 650 mg PRN Q4HRS PRN PO TEMP OVER 100.4F OR MILD PAIN; Start 03/14/20 at 15:30 Clonidine HCl (Catapres) 0.1 mg PRN Q6HRS PRN PO SBP>160 OR DBP>90 Last administered on 03/19/20at 03:12; Start 03/14/20 at 15:30 Diphenhydramine HCl (Benadryl) 25 mg PRN Q4HRS PRN IVP ITCHING Last administered on 03/20/20at 06:10; Start 03/14/20 at 15:30 Docusate Sodium (Colace) 100 mg PRN BID PRN PO CONSTIPATION; Start 03/14/20 at 15:30 Albuterol Sulfate (Ventolin Neb Soln) 2.5 mg PRN Q4HRS PRN NEB SHORTNESS OF BREATH; Start 03/14/20 at 15:30 Guaifenesin (Robitussin) 200 mg PRN Q4HRS PRN PO COUGH; Start 03/14/20 at 15:30 Enoxaparin Sodium (Lovenox 40mg Syringe) 40 mg Q24H SQ Last administered on 03/14/20at 20:11; Start 03/14/20 at 21:00; Stop 03/15/20 at 10:27; Status DC Folic Acid (Folic Acid) 1 mg DAILY PO Last administered on 03/20/20at 08:09; Start 03/16/20 at 13:00 Thiamine Mononitrate (Vitamin B-1) 100 mg DAILY PO ; Start 03/19/20 at 09:00; Stop 03/16/20 at 12:39; Status DC Chlordiazepoxide (Librium) 50 mg PRN Q1HR PRN PO For CIWA 8-14, 2nd choice; Start 03/14/20 at 15:30 Chlordiazepoxide (Librium) 100 mg PRN Q1HR PRN PO For CIWA 15 or >, 2nd choice; Start 03/14/20 at 15:30 Lorazepam (Ativan Inj) 2 mg PRN Q15MIN PRN IV SEE COMMENTS Last administered on 03/14/20at 17:56; Start 03/14/20 at 15:30; Stop 03/16/20 at 10:34; Status DC Magnesium Sulfate 100 ml @ 25 mls/hr 1X ONCE IV Last administered on 03/14/20at 18:55; Start 03/14/20 at 18:00; Stop 03/14/20 at 21:59; Status DC Potassium Chloride/Water 100 ml @ 50 mls/hr Q2H IV Last administered on 03/14/20at 20:11; Start 03/14/20 at 17:30; Stop 03/14/20 at 21:29; Status DC Prednisone (Prelone Oral Soln) 40 mg DAILY PO Last administered on 03/20/20at 08:09; Start 03/14/20 at 20:00 Sodium Chloride 500 ml @ 50 mls/hr 1X ONCE IV Last administered on 03/15/20at 00:22; Start 03/14/20 at 23:30; Stop 03/15/20 at 09:29; Status DC Dextrose/Sodium Chloride 1,000 ml @ 100 mls/hr Q10H IV ; Start 03/15/20 at 11:15; Stop 03/15/20 at 11:19; Status DC Dextrose/Sodium Chloride 1,000 ml @ 75 mls/hr 1X ONCE IV Last administered on 03/15/20at 11:33; Start 03/15/20 at 11:30; Stop 03/16/20 at 00:49; Status DC Spironolactone (Aldactone) 25 mg DAILY PO Last administered on 03/16/20at 08:26; Start 03/16/20 at 09:00; Stop 03/16/20 at 12:30; Status DC Albuterol/ Ipratropium (Duoneb) 3 ml RTQID NEB Last administered on 03/20/20at 07:30; Start 03/16/20 at 08:30 Potassium Chloride (Klor-Con) 40 meq 1X ONCE PO Last administered on 03/16/20at 13:33; Start 03/16/20 at 10:45; Stop 03/16/20 at 10:46; Status DC Lorazepam (Ativan) 4 mg PRN Q1HR PRN PO For CIWA 8-14 Last administered on 03/16/20at 13:34; Start 03/16/20 at 10:45 Lorazepam (Ativan) 8 mg PRN Q1HR PRN PO For CIWA 15 or greater; Start 03/16/20 at 10:45 Lorazepam (Ativan Inj) 2 mg PRN Q1HR PRN IV For CIWA 8-14 Last administered on 03/19/20at 13:57; Start 03/16/20 at 10:45 Lorazepam (Ativan Inj) 4 mg PRN Q1HR PRN IV For CIWA 15 or greater Last administered on 03/19/20at 15:42; Start 03/16/20 at 10:45 Haloperidol Lactate (Haldol Inj) 5 mg PRN Q4HRS PRN IVP Hallucinatns,Confusn,Delirium; Start 03/16/20 at 10:45 Spironolactone (Aldactone) 25 mg BID PO Last administered on 03/20/20at 08:10; Start 03/16/20 at 12:30 Thiamine Mononitrate (Vitamin B-1) 100 mg DAILY PO Last administered on 03/20/20 08:09; Start 03/16/20 at 12:45 Lactulose (Lactulose) 20 gm BID PO Last administered on 03/20/20at 08:10; Start 03/16/20 at 13:00 Lactulose (Lactulose) 20 gm PRN BID PRN PO hepatic encephalopathy; Start 03/16/20 at 12:45 Multivitamins 10 ml/Thiamine HCl 100 mg/Folic Acid 1 mg/Sodium Chloride 1,011.2 ml @ 100 mls/ hr DAILY IV Last administered on 5/1/20at 17:34; Start 03/16/20 at 16:00; Stop 03/17/20 at 07:21; Status DC Multivitamins (Thera M Plus) 1 tab DAILY PO Last administered on 03/20/20at 08:28; Start 03/17/20 at 09:00 Vitals/I & O Vital Sign - Last 24 Hours 03/19/20 03/19/20 03/19/20 03/19/20 11:00 11:22 15:38 15:41 Temp 98.0 98.0 98.0 98.0 Pulse 92 97 Resp 20 B/P (MAP) 124/73 (90) 139/97 (111) Pulse Ox 93 92 98 O2 Delivery Nasal Cannula Nasal Cannula Nasal Cannula Nasal Cannula O2 Flow Rate 2.0 2.0 2.0 2.0 03/19/20 03/19/20 03/19/20 03/20/20 19:00 20:09 23:00 03:00 Temp 97.4 98.3 98.2 97.4 98.3 98.2 Pulse 89 86 92 Resp 22 22 22 B/P (MAP) 120/81 (94) 121/76 (91) 143/88 (106) Pulse Ox 95 98 96 96 O2 Delivery Nasal Cannula Nasal Cannula Nasal Cannula Nasal Cannula O2 Flow Rate 2.0 2.0 2.0 2.0 03/20/20 03/20/20 07:15 07:33 Temp 98.4 98.4 Pulse 102 Resp 22 B/P (MAP) 122/85 (97) Pulse Ox 94 92 O2 Delivery Nasal Cannula Nasal Cannula O2 Flow Rate 2.0 2.0 Intake and Output 03/19/20 03/19/20 03/20/20 15:00 23:00 07:00 Intake Total 0 ml 0 ml Balance 0 ml 0 ml Hemodynamically unstable?: No Is patient in severe pain?: No Is NPO status required?: No AMBROSE KENDALL MD March 20, 2020 08:37
--- NOTE | 2020-03-20 10:00 | PDOC ---
Objective: Objective: D/w nurse - not clear on Hospice situation yet and wonders if he needs fluids. in the meantime. Does take pills but slowly and with much encouragement/help. Reviewed chart - not leaving oxygen or gown on yesterday, incontinent. Reviewed SW notes - primary to contact pt's yesterday? 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 MELD 24 (~20% 3 month mortality) w/ most recent labs. Awaiting Hospice discussion per primary and family. Hemodynamically unstable?: No Is patient in severe pain?: No Is NPO status required?: No TEX CARTER March 20, 2020 10:00
--- NOTE | 2020-03-20 10:03 | PDOC ---
SUBJECTIVE ROS No change OBJECTIVE Vital Signs Vital Signs Date Time Temp Pulse Resp B/P (MAP) Pulse Ox O2 Delivery O2 Flow Rate FiO2 03/20/20 08:10 Nasal Cannula 2.0 03/20/20 07:33 92 03/20/20 07:15 98.4 102 22 122/85 (97) 98.4 I & 0 Intake and Output 03/20/20 07:00 Intake Total 0 ml Balance 0 ml Intake Oral 0 ml # Voids 8 # Bowel Movements 3 PHYSICAL EXAM Physical Exam GEN.: No apparent distress, HEENT: OM moist , Icterus+ NECK: Supple. LUNGS: Clear to auscultation. HEART: RRR, S1, S2 present. ABDOMEN: Soft, nontender. EXTREMITIES: No edema n No costa Skin Icteric Neuro Confused DIAGNOSIS/ASSESSMENT Assessment & Plan Hyponatremia - Resolved Labs reviewed from yesterday DEENA sec to Vol Depletion, Improved with IVF Liver Failure - GI recommends Hospice Increased echogenicity of the liver, likely hepatic steatosis on US Elevated LFT's/HyperBilirubinemia Hx of ETIOH abuse Met Encephalopathy HypoKalemia- replace as indicated H ypoMag - replace as needed Will sign off COMMENT/RELEVANT DATA Meds Current Medications Medications (Trade) Dose Ordered Sig/David Start Time Stop Time Status Last Admin Dose Admin Acetaminophen (Tylenol) 650 mg PRN Q4HRS PRN 03/14/20 15:30 Albuterol Sulfate (Ventolin Neb Soln) 2.5 mg PRN Q4HRS PRN 03/14/20 15:30 Albuterol/ Ipratropium (Duoneb) 3 ml RTQID 03/16/20 08:30 03/20/20 07:30 3 ML Chlordiazepoxide (Librium) 100 mg PRN Q1HR PRN 03/14/20 15:30 Clonidine HCl (Catapres) 0.1 mg PRN Q6HRS PRN 03/14/20 15:30 03/19/20 03:12 0.1 MG Dextrose/Lactated Ringer's 1,000 ml @ 125 mls/hr 1X ONCE 03/14/20 15:30 03/14/20 17:31 DC Dextrose/Sodium Chloride 1,000 ml @ 75 mls/hr 1X ONCE 03/15/20 11:30 03/16/20 00:49 DC 03/15/20 11:33 75 MLS/HR Diphenhydramine HCl (Benadryl) 25 mg PRN Q4HRS PRN 03/14/20 15:30 03/20/20 06:10 25 MG Docusate Sodium (Colace) 100 mg PRN BID PRN 03/14/20 15:30 Enoxaparin Sodium (Lovenox 40mg Syringe) 40 mg Q24H 03/14/20 21:00 03/15/20 10:27 DC 03/14/20 20:11 40 MG Folic Acid (Folic Acid) 1 mg DAILY 03/16/20 13:00 03/20/20 08:09 1 MG Guaifenesin (Robitussin) 200 mg PRN Q4HRS PRN 03/14/20 15:30 Haloperidol Lactate (Haldol Inj) 5 mg PRN Q4HRS PRN 03/16/20 10:45 Lactulose (Lactulose) 20 gm PRN BID PRN 03/16/20 12:45 Lorazepam (Ativan Inj) 4 mg PRN Q1HR PRN 03/16/20 10:45 03/19/20 15:42 4 MG Lorazepam (Ativan) 8 mg PRN Q1HR PRN 03/16/20 10:45 Magnesium Sulfate 100 ml @ 25 mls/hr 1X ONCE 03/14/20 18:00 03/14/20 21:59 DC 03/14/20 18:55 25 MLS/HR Magnesium Sulfate/ Dextrose 100 ml @ 100 mls/hr 1X ONCE 03/14/20 15:00 03/14/20 15:59 DC 03/14/20 16:03 100 MLS/HR Multivitamins (Thera M Plus) 1 tab DAILY 03/17/20 09:00 03/20/20 08:28 1 TAB Multivitamins 10 ml/Thiamine HCl 100 mg/Folic Acid 1 mg/Sodium Chloride 1,011.2 ml @ 100 mls/ hr DAILY 03/16/20 16:00 03/17/20 07:21 DC 03/16/20 17:34 100 MLS/HR Ondansetron HCl (Zofran) 4 mg PRN Q4HRS PRN 03/14/20 15:30 Potassium Chloride/Water 100 ml @ 50 mls/hr Q2H 03/14/20 17:30 03/14/20 21:29 DC 03/14/20 20:11 50 MLS/HR Potassium Chloride (Klor-Con) 40 meq 1X ONCE 03/16/20 10:45 03/16/20 10:46 DC 03/16/20 13:33 40 MEQ Prednisone (Prelone Oral Soln) 40 mg DAILY 03/14/20 20:00 03/20/20 08:09 40 MG Sodium Chloride 500 ml @ 50 mls/hr 1X ONCE 03/14/20 23:30 03/15/20 09:29 DC 03/15/20 00:22 50 MLS/HR Spironolactone (Aldactone) 25 mg BID 03/16/20 12:30 03/20/20 08:10 25 MG Thiamine Mononitrate (Vitamin B-1) 100 mg DAILY 03/16/20 12:45 03/20/20 08:09 100 MG Zolpidem Tartrate (Ambien) 5 mg PRN QHS PRN 03/14/20 15:30 Results All relevant outside records, renal labs, imaging studies, telemetry/EKG's were reviewed. TRUDI HIGGINS MD March 20, 2020 10:03
--- NOTE | 2020-03-20 10:09 | NUR ---
MICHELLE following. Discussed with RN. Dr. Pratt attempted to contact number provided by PD for pt's , Deidra, however it was a different name with the voicemail, so Dr. Pratt did not leave a voicemail. MICHELLE contacted the phone number ([phone]) today, left a voicemail requesting a call back. Plan is to ask the solutions engineer of the number if they know if they have anyone in the hospital and if they called the PD for a wellperson check 6 days ago. SW awaiting call back. RN notified. Addendum: 03/20/20 at 1021 by SAMIRA MARTINEZ SW left voicemail with [facility] case management department, requesting a call back. RN advised pt apparently normally goes to [facility], MICHELLE attempting to determine if [facility] has any family contact information. Addendum: 03/20/20 at 1213 by SAMIRA MARTINEZ RN received a phone call from pt's sister, Alma, stating she had called PD for a well person check and hadn't heard what happened to pt until she contacted the PD again today. RN provided Alma with SW phone number, MICHELLE also gave Dr. Martinez Alma's number for him to call to discuss how pt is doing and prognosis. Alma contacted MICHELLE, MICHELLE advised Dr. Martinez should call her to discuss how pt is doing medically and what is going on, and SW will assist with discharge planning whatever that may look like. Alma is living in [place], [place], phone number [phone]. Alma reported pt's 3 years ago. MICHELLE contacted the number PD provided for , left voicemail stating to disregard prior voicemail and contact with family had been made. MICHELLE notified Dr. Martinez, Alma is expecting his call. MICHELLE will continue to follow. Addendum: 03/20/20 at 1404 by SAMIRA MARTINEZ Pt's sister, Alma contacted MICHELLE advising she had spoke with Dr. Martinez, and would we give her a day and half to get to [place] to see her brother before he passes. MICHELLE confirmed with supervisor ordnance truck installation, Carlos Geller, who advised that is okay, and to determine if impatient hospice referral can be initiated whilst we wait for Alma to arrive. MICHELLE spoke with Alma, she is agreeable to inpatient hospice referral. MICHELLE questioned if Alma knows if pt has insurance as we do not have any on file, Alma thinks pt does have insurance as he was at [facility] not long ago. Alma gave permission for pt to contact [facility] to determine if they have any insurance on file. Alma has a rental car and will be driving the 18 hour journey from [facility] to [place]. MICHELLE spoke with Manuela MARTINEZ at [facility], they do not have any patient by that name in their system. Pt may have been to a different hospital. MICHELLE contacted Vipin at [facility] to provide sister's contact information, advised of inpatient hospice referral faxed. Awaiting confirmation pt is appropriate for inpatient hospice and if [facility] can do [facility] inpatient hospice. RN notified. Addendum: 03/20/20 at 1612 by SAMIRA MARTINEZ Pt is accepted for [facility] inpatient hospice with [facility]. Consents have been emailed to pt's sister, Alma, when they have been signed and sent back pt will become inpatient hospice. Pt's sister, Alma has been approved to visit with pt when she arrives from [place]. Alma will notify SW when she expects to arrive and will be met at the door, placed in a gown and mask and escorted to see pt. RN notified. MICHELLE will continue to follow.
[2020-03-20 11:00] VITALS: BP 159/99
[2020-03-20 15:00] VITALS: BP 120/60
[2020-03-20 19:00] VITALS: BP 145/98
[2020-03-20 23:00] VITALS: BP 138/82
[2020-03-21 03:00] VITALS: BP 130/80
[2020-03-21 07:00] VITALS: BP 146/86
[2020-03-21] MEDS: IPRATRPIUM/ALBUTEROL 0.5/2.5MG 3 ML NEBU. NEB SCH ×2 (07:20→12:17)
[2020-03-21] MEDS: LACTULOSE 20 GM/30 ML SOLUTION. PO SCH (09:00)
[2020-03-21] MEDS: FOLIC ACID 1 MG TABLET. PO SCH (09:00)
[2020-03-21] MEDS: prednisoLONE 15 MG/5 ML ORAL SOLUTION. PO SCH (09:00)
[2020-03-21] MEDS: MULTIVITAMIN with MINERAL TABLET. PO SCH (09:00)
[2020-03-21] MEDS: THIAMINE 100 MG TABLET. PO SCH (09:00)
[2020-03-21] MEDS: SPIRONOLACTONE 25 MG TABLET PO SCH (09:00)
--- NOTE | 2020-03-21 09:15 | PDOC ---
Objective: Objective: Reviewed chart - accepted fro inpt Hospice and sister coming from out of state. D/w nurse - confused, just urinated everywhere, won't take meds. Vital Signs: Vital Signs Date Time Temp Pulse Resp B/P (MAP) Pulse Ox O2 Delivery O2 Flow Rate FiO2 03/21/20 07:25 Nasal Cannula 2.0 03/21/20 07:00 98.8 73 20 146/86 (106) 96 98.8 PE: GEN: chronically ill SKIN: +jaundice NEURO/PSYCH: confused, grunting A/P: ESLD -- Seems possible Hospice after sister travels to see him. No longer taking PO meds, drinking, eating, etc. - will review any additional GI recs w/ Dr. Livingston. Hemodynamically unstable?: No Is patient in severe pain?: No Is NPO status required?: No TEX CARTER March 21, 2020 09:15
--- NOTE | 2020-03-21 09:50 | PDOC ---
PROGRESS NOTES Chief Complaint Chief Complaint IMPRESSION Acute alcoholic hepatitis, Maddrey score is 47, scores greater than 32 are very poor prognosis. Acute renal failure most likely prerenal etiology since patient has had very poor oral intake over the last 72 hours. Severe hyponatremia Hypomagnesemia Hypokalemia Hypoglycemia Elevated Lipase, doubt pancreatitis given that his symptoms most likely are related to his alcoholic hepatitis Severe alcoholism 03/21 HOSPICE CONSULTED D/W RN very poor short term prognosis d/w sister in [place] by phone, consents to hospice eval and intake verbally 03/20 37 min pt exam, chart review, > 50% of time spent with exam, chart review, pt care coordination History of Present Illness History of Present Illness 03/21/2020 Patient seen and examined He appears to be extremely encephalopathic very jaundiced His abdomen is distended with ascites He has mitts for patient comfort Discussed with RN Chart reviewed We are trying to arrange hospice 03/18/2020 Patient seen and examined He remains very confused and jaundiced Has mitts on for patient safety Chart reviewed Discussed with RN We will probably arrange hospice soon 03/17/2020 Patient seen and examined He is still jaundiced and confused Discussed with RN Chart reviewed 03/16/2020 Patient seen and examined He is pleasantly confused Discussed with RN Chart Vitals Vitals Vital Signs Date Time Temp Pulse Resp B/P (MAP) Pulse Ox O2 Delivery O2 Flow Rate FiO2 03/21/20 08:30 Nasal Cannula 2.0 03/21/20 07:00 98.8 73 20 146/86 (106) 96 98.8 Physical Exam Physical Exam JAUNDICED, Confused General: No acute distress, mild distress, Other (Pleasantly confused) Heart: Regular rate Lungs: Clear Abdomen: Normal bowel sounds, Soft, No tenderness Skin: No rashes, No breakdown, Other (JAUNDICED) Labs LABS Exam: Ultrasound abdomen complete Indication: Hyperbilirubinemia/transaminitis Technique: Real-time grayscale and color Doppler images of the abdomen were obtained by the department candle molder. Comparisons: None FINDINGS: Increased echogenicity of the liver. Hepatopedal flow within the portal vein. Gallbladder is unremarkable. No pericholecystic fluid or wall thickening. Common bile duct measures 4 mm. Right kidney measures 15.1 cm in length. No hydronephrosis. Left kidney measures 14.9 cm in length. No hydronephrosis. Spleen measures 10.2 cm in length. Visualized portions aorta and IVC are unremarkable. IMPRESSION: 1. Increased echogenicity of the liver, likely hepatic steatosis. 2. No hydronephrosis. 3. Normal sonographic appearance of the gallbladder, no evidence of acute cholecystitis. Electronically signed by: Nivia Ely MD (03/14/2020 9:42 PM) [id number] DICTATED and SIGNED BY: NIVIA ELY MD Assessment and Plan Assessmemt and Plan Problems Medical Problems: (1) Alcoholic cirrhosis Status: Acute (2) Hyponatremia Status: Acute (3) Renal failure Status: Acute (4) Weakness Status: Acute Comment Review of Relevant I have reviewed the following items hesham (where applicable) has been applied. Medications Current Medications Sodium Chloride 1,000 ml @ 1,000 mls/hr Q1H IV Last administered on 03/14/20at 14:51; Start 03/14/20 at 13:54; Stop 03/14/20 at 14:53; Status DC Sodium Chloride 1,000 ml @ 100 mls/hr Q10H IV Last administered on 03/14/20at 16:07; Start 03/14/20 at 13:54; Stop 03/14/20 at 22:36; Status DC Magnesium Sulfate/ Dextrose 100 ml @ 100 mls/hr 1X ONCE IV Last administered on 03/14/20at 16:03; Start 03/14/20 at 15:00; Stop 03/14/20 at 15:59; Status DC Potassium Chloride (Klor-Con) 40 meq 1X ONCE PO Last administered on 03/14/20at 15:25; Start 03/14/20 at 15:00; Stop 03/14/20 at 15:01; Status DC Dextrose/Lactated Ringer's 1,000 ml @ 125 mls/hr 1X ONCE IV ; Start 03/14/20 at 15:30; Stop 03/14/20 at 17:31; Status DC Sodium Chloride 1,000 ml @ 100 mls/hr Q10H IV Last administered on 03/14/20at 16:40; Start 03/14/20 at 15:17; Stop 03/14/20 at 22:36; Status DC Multivitamins 10 ml/Thiamine HCl 100 mg/Folic Acid 1 mg/Sodium Chloride 1,011.2 ml @ 125 mls/ hr 1X ONCE IV Last administered on 03/14/20at 15:40; Start 03/14/20 at 15:30; Stop 03/14/20 at 23:35; Status DC Ondansetron HCl (Zofran) 4 mg PRN Q4HRS PRN IV NAUSEA/VOMITING; Start 03/14/20 at 15:30 Zolpidem Tartrate (Ambien) 5 mg PRN QHS PRN PO INSOMNIA; Start 03/14/20 at 15:30 Acetaminophen (Tylenol) 650 mg PRN Q4HRS PRN PO TEMP OVER 100.4F OR MILD PAIN; Start 03/14/20 at 15:30 Clonidine HCl (Catapres) 0.1 mg PRN Q6HRS PRN PO SBP>160 OR DBP>90 Last administered on 03/19/20at 03:12; Start 03/14/20 at 15:30 Diphenhydramine HCl (Benadryl) 25 mg PRN Q4HRS PRN IVP ITCHING Last administered on 03/20/20at 06:10; Start 03/14/20 at 15:30 Docusate Sodium (Colace) 100 mg PRN BID PRN PO CONSTIPATION; Start 03/14/20 at 15:30 Albuterol Sulfate (Ventolin Neb Soln) 2.5 mg PRN Q4HRS PRN NEB SHORTNESS OF BREATH; Start 03/14/20 at 15:30 Guaifenesin (Robitussin) 200 mg PRN Q4HRS PRN PO COUGH; Start 03/14/20 at 15:30 Enoxaparin Sodium (Lovenox 40mg Syringe) 40 mg Q24H SQ Last administered on 03/14/20at 20:11; Start 03/14/20 at 21:00; Stop 03/15/20 at 10:27; Status DC Folic Acid (Folic Acid) 1 mg DAILY PO Last administered on 03/20/20at 08:09; Start 03/16/20 at 13:00 Thiamine Mononitrate (Vitamin B-1) 100 mg DAILY PO ; Start 03/19/20 at 09:00; Stop 03/16/20 at 12:39; Status DC Chlordiazepoxide (Librium) 50 mg PRN Q1HR PRN PO For CIWA 8-14, 2nd choice; Start 03/14/20 at 15:30 Chlordiazepoxide (Librium) 100 mg PRN Q1HR PRN PO For CIWA 15 or >, 2nd choice; Start 03/14/20 at 15:30 Lorazepam (Ativan Inj) 2 mg PRN Q15MIN PRN IV SEE COMMENTS Last administered on 03/14/20at 17:56; Start 03/14/20 at 15:30; Stop 03/16/20 at 10:34; Status DC Magnesium Sulfate 100 ml @ 25 mls/hr 1X ONCE IV Last administered on 03/14/20at 18:55; Start 03/14/20 at 18:00; Stop 03/14/20 at 21:59; Status DC Potassium Chloride/Water 100 ml @ 50 mls/hr Q2H IV Last administered on 03/14/20at 20:11; Start 03/14/20 at 17:30; Stop 03/14/20 at 21:29; Status DC Prednisone (Prelone Oral Soln) 40 mg DAILY PO Last administered on 03/20/20at 08: 09; Start 03/14/20 at 20:00 Sodium Chloride 500 ml @ 50 mls/hr 1X ONCE IV Last administered on 03/15/20at 00:22; Start 03/14/20 at 23:30; Stop 03/15/20 at 09:29; Status DC Dextrose/Sodium Chloride 1,000 ml @ 100 mls/hr Q10H IV ; Start 03/15/20 at 11:15; Stop 03/15/20 at 11:19; Status DC Dextrose/Sodium Chloride 1,000 ml @ 75 mls/hr 1X ONCE IV Last administered on 03/15/20at 11:33; Start 03/15/20 at 11:30; Stop 03/16/20 at 00:49; Status DC Spironolactone (Aldactone) 25 mg DAILY PO Last administered on 03/16/20at 08:26; Start 03/16/20 at 09:00; Stop 03/16/20 at 12:30; Status DC Albuterol/ Ipratropium (Duoneb) 3 ml RTQID NEB Last administered on 03/21/20at 07:20; Start 03/16/20 at 08:30 Potassium Chloride (Klor-Con) 40 meq 1X ONCE PO Last administered on 03/16/20at 13:33; Start 03/16/20 at 10:45; Stop 03/16/20 at 10:46; Status DC Lorazepam (Ativan) 4 mg PRN Q1HR PRN PO For CIWA 8-14 Last administered on 03/16/20at 13:34; Start 03/16/20 at 10:45 Lorazepam (Ativan) 8 mg PRN Q1HR PRN PO For CIWA 15 or greater; Start 03/16/20 at 10:45 Lorazepam (Ativan Inj) 2 mg PRN Q1HR PRN IV For CIWA 8-14 Last administered on 03/21/20at 06:42; Start 03/16/20 at 10:45 Lorazepam (Ativan Inj) 4 mg PRN Q1HR PRN IV For CIWA 15 or greater Last administered on 03/21/20at 09:26; Start 03/16/20 at 10:45 Haloperidol Lactate (Haldol Inj) 5 mg PRN Q4HRS PRN IVP Hallucinatns,Confusn,Delirium; Start 03/16/20 at 10:45 Spironolactone (Aldactone) 25 mg BID PO Last administered on 03/20/20at 08:10; Start 03/16/20 at 12:30 Thiamine Mononitrate (Vitamin B-1) 100 mg DAILY PO Last administered on 03/20/20 08:09; Start 03/16/20 at 12:45 Lactulose (Lactulose) 20 gm BID PO Last administered on 03/20/20at 08:10; Start 03/16/20 at 13:00 Lactulose (Lactulose) 20 gm PRN BID PRN PO hepatic encephalopathy; Start 03/16/20 at 12:45 Multivitamins 10 ml/Thiamine HCl 100 mg/Folic Acid 1 mg/Sodium Chloride 1,011.2 ml @ 100 mls/ hr DAILY IV Last administered on 03/16/20at 17:34; Start 03/16/20 at 16:00; Stop 03/17/20 at 07:21; Status DC Multivitamins (Thera M Plus) 1 tab DAILY PO Last administered on 03/20/20at 08:28; Start 03/17/20 at 09:00 Vitals/I & O Vital Sign - Last 24 Hours 5/5/20 5/5/20 5/5/20 5/5/20 11:00 11:21 15:00 15:42 Temp 97.8 98.3 97.8 98.3 Pulse 87 76 Resp 18 B/P (MAP) 159/99 (119) 120/60 (80) Pulse Ox 99 22 O2 Delivery Room Air Nasal Cannula Room Air Nasal Cannula O2 Flow Rate 2.0 2.0 03/20/20 03/20/20 03/20/20 03/20/20 19:00 20:00 20:22 23:00 Temp 98.8 98.3 98.8 98.3 Pulse 91 98 Resp 24 24 B/P (MAP) 145/98 (114) 138/82 (100) Pulse Ox 95 96 93 O2 Delivery Room Air Nasal Cannula Room Air Room Air O2 Flow Rate 2.0 03/21/20 03/21/20 03/21/20 03/21/20 03:00 07:00 07:25 08:30 Temp 97.8 98.8 97.8 98.8 Pulse 94 73 Resp 20 B/P (MAP) 130/80 (97) 146/86 (106) Pulse Ox 92 96 O2 Delivery Room Air Nasal Cannula Nasal Cannula Nasal Cannula O2 Flow Rate 2.0 2.0 2.0 Intake and Output 03/20/20 03/20/20 03/21/20 15:00 23:00 07:00 Intake Total 0 ml 0 ml 0 ml Balance 0 ml 0 ml 0 ml Hemodynamically unstable?: No Is patient in severe pain?: No Is NPO status required?: No AMBROSE KENDALL MD March 21, 2020 09:50
--- NOTE | 2020-03-21 10:52 | NUR ---
MICHELLE following. Discussed with RN. Pt's sister is on her way from [place], at 0830 pt was about 11 hours away. Alma signed the consents, sent to [facility]. Pt should soon be switched to [facility]. MICHELLE spoke with nursing supervisor [employer], Monica, Alma is to call [phone] when she arrives and ask for nursing supervisor [employer] to determine whether she can come in or wait until tomorrow (03/22/2020). MICHELLE notified Alma. [facility] checked in medicare and managed care system to determine if pt has insurance - no insurance listed. RN notified. MICHELLE will continue to follow.
[2020-03-21 11:00] VITALS: BP 140/82
== END 2020-03-21 13:08 | disposition hospice, home (50) | DRG 432 ==
LOC: ER 13:21 → 4 NORTH 15:25
PROVIDERS: ADMIT Internal Medicine; ATTEND Internal Medicine
DX: K70.11 Alcoholic hepatitis with ascites (principal); G93.41 Metabolic encephalopathy; D68.9 Coagulation defect, unspecified; E87.1 Hypo-osmolality and hyponatremia; N17.9 Acute kidney failure, unspecified; K70.40 Alcoholic hepatic failure without coma; D53.9 Nutritional anemia, unspecified; E16.2 Hypoglycemia, unspecified; E83.42 Hypomagnesemia; E87.6 Hypokalemia; F32.9 Major depressive disorder, single episode, unspecified; F41.9 Anxiety disorder, unspecified; I10 Essential (primary) hypertension; K21.9 Gastro-esophageal reflux disease without esophagitis; K70.31 Alcoholic cirrhosis of liver with ascites; E86.9 Volume depletion, unspecified; F10.10 Alcohol abuse, uncomplicated; Z91.14 Patient's other noncompliance with medication regimen
CPT/HCPCS: 36415; 71045; 76700; 80048; 80053; 80076; 80307; 81001; 82140; 82248; 82436; 82607; 83690; 83735; 83880; 83930; 83935; 84133; 84300; 84439; 84443; 84484; 85007; 85025; 85027; 85610; 86705; 86709; 86803; 87340; 93005; 94640; 94760; 96361; 96365; 96368; 99285; G0480; J1200; J1650; J2060; J3411; J3475; J3480; J3490; J7030; J7042; J7510; G0378

== ENCOUNTER 2020-03-21 13:17 | Inpatient (IN) | payer OTHER ==
[~2020-03-21] VITALS: Ht 198.1 cm; Wt 89.6 kg
[2020-03-21] MEDS ORDERED: 0.9 % SODIUM CHLORIDE 10 ML DISP.SYRIN. IV PRN (14:45)
[2020-03-21] MEDS ORDERED: BISACODYL 10 MG SUPP.RECT. PR PRN (14:45)
[2020-03-21] MEDS ORDERED: SCOPOLAMINE 1.5MG PATCH. TD SCH (15:00)
[2020-03-21] MEDS: MORPHINE SULFATE 2 MG/ML VIAL. IV PRN ×3 (16:15→20:09)
[2020-03-21 19:54] VITALS: BP 118/74
--- NOTE | 2020-03-21 20:40 | NUR ---
Patient's sister Alma, visited with Patient and questions/concerns answered per this this RN. Alma denies any further questions/concerns at this time. Alma left for evening. Alma escorted to ED exit per Han NOE.
--- NOTE | 2020-03-21 22:08 | NUR ---
Patient sister(Alma) here from [place] to visit. Alma in gown with mask and gloves at bedside.
[2020-03-22] MEDS: ACETAMINOPHEN 650 MG SUPP.RECT. PR PRN ×2 (00:12→04:33)
[2020-03-22] MEDS: MORPHINE SULFATE 2 MG/ML VIAL. IV PRN ×6 (00:12→18:08)
--- NOTE | 2020-03-22 00:12 | NUR ---
Tylenol suppository given for temperature 100.2, Morphine given for comfort/air hunger.
[2020-03-22 03:49] VITALS: BP 73/39
[2020-03-22 07:57] VITALS: BP 74/33
--- NOTE | 2020-03-22 08:35 | PDOC1 ---
History and Physical Date of Admission Date of Admission DATE: 03/22/20 TIME: 08:35 Identification/Chief Complaint Chief Complaint HERE FOR END OF LIFE HOSPICE CARE History of Present Illness History of Present Illness ADMITTED WITH WORSENING Hepatic failure, now has continued decline little or no hope for recovery, sister has verbally consented to hospice intake Past Medical History Cardiovascular: Hyperlipidemia Pulmonary: No pertinent hx GI: Constipation, GERD Hepatobiliary: Cirrhosis, Other (END STAGE LIVER DISEASE) Psych: Addictions, Other Past Surgical History Past Surgical History: No pertinent history Family History Family History: Hypertension, Other Social History Smoke: <1 pack per day ALCOHOL: heavy Drugs: None Current Medications Current Medications Current Medications Morphine Sulfate (Morphine Sulfate) 2 mg PRN Q1HR PRN IV MODERATE TO SEVERE PAIN Last administered on 03/22/20at 04:32; Start 03/21/20 at 14:45 Lorazepam (Ativan Inj) 2 mg PRN Q1HR PRN IVP ANXIETY / AGITATION Last administered on 03/21/20at 18:10; Start 03/21/20 at 14:45 Scopolamine (Transderm-Scop) 1 patch Q3DAYS TD Last administered on 03/21/20at 15:24; Start 03/21/20 at 15:00 Acetaminophen (Tylenol Supp) 650 mg PRN Q4HRS PRN [place] MILD PAIN / TEMP > 100.3'F Last administered on 03/22/20at 04:33; Start 03/21/20 at 14:45 Bisacodyl (Dulcolax Supp) 10 mg PRN DAILY PRN [place] CONSTIPATION; Start 03/21/20 at 14:45 Sodium Chloride (Normal Saline Flush) 3 ml QSHIFT PRN IV AFTER MEDS AND BLOOD DRAWS; Start 03/21/20 at 14:45 Allergies Allergies: Coded Allergies: No Known Drug Allergies (Unverified , 03/14/20) ROS Review of System UNABLE DUE TO ENCEPHALOPATHY General: YES: Fatigue PSYCHOLOGICAL ROS: YES: Anxiety, Memory difficulties Musculoskeletal: Yes Gait Disturbance, Yes Joint Stiffness Neurological: Yes Behavorial Changes, Yes Confusion Physical Exam Physical Exam GEN: NAD HEENT: Atraumatic, PERRL LUNGS: CTAB anteriorly HEART: RRR ABD: BS+, round/large, soft, non-tender EXTREMITY: No edema SKIN: +jaundice, scaly patches bilateral elbows General: Cooperative, mild distress HEENT: Atraumatic, Mucous membr. moist/pink Lungs: Clear to auscultation Heart: no thrills Breasts: Not examined Abdomen: Soft Rectal Exam: not examined PELVIC: Examination not indicated Extremities: No cyanosis Neuro: Cranial nerves 3-12 NL Vitals Vitals Vital Signs Date Time Temp Pulse Resp B/P (MAP) Pulse Ox O2 Delivery O2 Flow Rate FiO2 03/22/20 08:09 Nasal Cannula 2.0 03/22/20 07:57 101.0 107 20 74/33 (47) 97 101.0 VTE Prophylaxis Ordered VTE Prophylaxis Devices: Contraindicated VTE Pharmacological Prophylaxi: No Assessment/Plan Assessment/Plan Admitting IMPRESSION END STAGE LIVER DISEASE Acute alcoholic hepatitis, Maddrey score is 47, scores greater than 32 are very poor prognosis. Acute renal failure most likely prerenal etiology since patient has had very poor oral intake over the last 72 hours. Severe hyponatremia Hypomagnesemia Hypokalemia Hypoglycemia Elevated Lipase, doubt pancreatitis given that his symptoms most likely are related to his alcoholic hepatitis Severe alcoholism PLAN PALLIATIVE //HOSPICE CARE, ROUTINE MEDS [facility] 03/22 HOSPICE CONSULTED D/W RN very poor short term prognosis d/w sister in [place] by phone, consents to hospice eval and intake verbally 03/20 [facility] hospice will COORDINATE, ADMIT INPATIENT HOSPICE EXPECT LESS THAN 5- 7 DAYS AMBROSE KENDALL MD March 22, 2020 08:35
--- NOTE | 2020-03-22 09:01 | PDOC3 ---
Discharge Summary Date of Admission: Mar 13, 2020 Date of Discharge: March 21, 2020 Follow-Up: 1-2 days Admitting Diagnosis comment: IMPRESSION Acute alcoholic hepatitis, Maddrey score is 47, scores greater than 32 are very poor prognosis. Acute renal failure most likely prerenal etiology since patient has had very poor oral intake over the last 72 hours. Severe hyponatremia Hypomagnesemia Hypokalemia Hypoglycemia Elevated Lipase, doubt pancreatitis given that his symptoms most likely are related to his alcoholic hepatitis Severe alcoholism 03/21 HOSPICE CONSULTED D/W RN very poor short term prognosis d/w sister in [place] by phone, consents to hospice eval and intake verbally 03/20 37 min pt exam, chart review d/c planning , > 50% of time spent with exam, chart review, pt care coordination History of Present Illness History of Present Illness 03/21/2020 Patient seen and examined He appears to be extremely encephalopathic very jaundiced His abdomen is distended with ascites He has mitts for patient comfort Discussed with RN Chart reviewed We are trying to arrange hospice 03/18/2020 Patient seen and examined He remains very confused and jaundiced Has mitts on for patient safety Chart reviewed Discussed with RN We will probably arrange hospice soon 03/17/2020 Patient seen and examined He is still jaundiced and confused Discussed with RN Chart reviewed 03/16/2020 Patient seen and examined He is pleasantly confused Discussed with RN Chart Vitals Vitals Vital Signs Date Time Temp Pulse Resp B/P (MAP) Pulse Ox O2 Delivery O2 Flow Rate FiO2 03/21/20 08:30 Nasal Cannula 2.0 03/21/20 07:00 98.8 73 20 146/86 (106) 96 98.8 Physical Exam Physical Exam JAUNDICED, Confused General: No acute distress, mild distress, Other (Pleasantly confused) Heart: Regular rate Lungs: Clear Abdomen: Normal bowel sounds, Soft, No tenderness Skin: No rashes, No breakdown, Other (JAUNDICED) Labs LABS Exam: Ultrasound abdomen complete Indication: Hyperbilirubinemia/transaminitis Technique: Real-time grayscale and color Doppler images of the abdomen were obtained by the department rn orthopaedics. Comparisons: None FINDINGS: Increased echogenicity of the liver. Hepatopedal flow within the portal vein. Gallbladder is unremarkable. No pericholecystic fluid or wall thickening. Common bile duct measures 4 mm. Right kidney measures 15.1 cm in length. No hydronephrosis. Left kidney measures 14.9 cm in length. No hydronephrosis. Spleen measures 10.2 cm in length. Visualized portions aorta and IVC are unremarkable. IMPRESSION: 1. Increased echogenicity of the liver, likely hepatic steatosis. 2. No hydronephrosis. 3. Normal sonographic appearance of the gallbladder, no evidence of acute cholecystitis. Electronically signed by: Nivia Ely MD (03/14/2020 9:42 PM) [id number] DICTATED and SIGNED BY: NIVIA ELY MD Assessment and Plan Assessmemt and Plan Problems Medical Problems: (1) Alcoholic cirrhosis Status: Acute (2) Hyponatremia Status: Acute (3) Renal failure Status: Acute (4) Weakness Status: Acute Brief Hospital Course Mr. Leon is a 54 old [sex] who presented with [ end stage liver disease] CONDITION AT DISCHARGE: Comment (poor prognosis) Discharge Medications Current Medications Morphine Sulfate (Morphine Sulfate) 2 mg PRN Q1HR PRN IV MODERATE TO SEVERE PAIN Last administered on 03/22/20 04:32; Start 03/21/20 at 14:45 Lorazepam (Ativan Inj) 2 mg PRN Q1HR PRN IVP ANXIETY / AGITATION Last administered on 03/21/20 18:10; Start 03/21/20 at 14:45 Scopolamine (Transderm-Scop) 1 patch Q3DAYS TD Last administered on 03/21/20 15:24; Start 03/21/20 at 15:00 Acetaminophen (Tylenol Supp) 650 mg PRN Q4HRS PRN [place] MILD PAIN / TEMP > 100.3'F Last administered on 03/22/20at 04:33; Start 03/21/20 at 14:45 Bisacodyl (Dulcolax Supp) 10 mg PRN DAILY PRN [place] CONSTIPATION; Start 03/21/20 at 14:45 Sodium Chloride (Normal Saline Flush) 3 ml QSHIFT PRN IV AFTER MEDS AND BLOOD DRAWS; Start 03/21/20 at 14:45 Vital Signs Vital Signs Date Time Temp Pulse Resp B/P (MAP) Pulse Ox O2 Delivery O2 Flow Rate FiO2 03/22/20 08:09 Nasal Cannula 2.0 03/22/20 07:57 101.0 107 20 74/33 (47) 97 101.0 Allergies Allergies Coded Allergies Type Severity Reaction Last Updated Verified No Known Drug Allergies 03/14/20 No Disposition/Orders: Other (admit to inpt hospice) AMBROSE KENDALL MD March 22, 2020 09:01
[2020-03-22] MEDS ORDERED: MORPHINE SULFATE 2 MG/ML VIAL. IV PRN (09:15)
[2020-03-22] MEDS ORDERED: LORazepam 1 MG TABLET PO PRN (09:15)
[2020-03-22] MEDS ORDERED: MORPHINE SULFATE 20 MG/ML CONC SOLUTION. SL PRN (09:15)
[2020-03-22] MEDS ORDERED: PROMETHAZINE 25 MG SUPP.RECT. PR PRN (09:15)
[2020-03-22] MEDS ORDERED: ACETAMINOPHEN 650 MG SUPP.RECT. PR PRN (09:15)
[2020-03-22 19:12] VITALS: BP 41/20
[2020-03-22 19:21] VITALS: BP 150/77
--- NOTE | 2020-03-22 21:25 | NUR ---
Patient found with no response to verbal or tactile stimuli, no breath sounds, to chest movement, no apical heartbeat for one minute, no gag reflex, no pupillary response to light. Assessment verified with Janae Garrett RN.
--- NOTE | 2020-03-22 21:36 | NUR ---
Page placed to Dr. Martinez's service regarding assessment, spoke with Lydia at service who stated she would notify Dr. Hdz, loan consultant for Dr. Martinez.
--- NOTE | 2020-03-22 21:37 | NUR ---
Call placed to [facility], spoke with Radhika Hinojosa RN who stated she would be here within an hour to provide care for Patient. Radhika asked this RN to notify family, doctor and [place].
--- NOTE | 2020-03-22 21:55 | NUR ---
Housing supervisor filtration Virginia Virk notified of Patient passing.
--- NOTE | 2020-03-22 22:00 | NUR ---
Call returned from Dr. Hdz, informed him of assessment and Patietn pronounced at [phone] on 03-22-2020.
--- NOTE | 2020-03-22 22:10 | NUR ---
Call to [facility] regarding Donation evaluation. Spoke with Jay Jay at [facility] and verified labs, history, test, X rays, recent vitals, Covid19 questions, skin color(jaundice) and answered all questions as per chart review/assessments. Jay Jay stated he would review findings with his director and get back with this RN as to donation status. referral number [id number].
--- NOTE | 2020-03-22 22:20 | NUR ---
Saline placed in Patient eyes and head of bed elevated per Jay Jay from [facility] instructions.
--- NOTE | 2020-03-22 22:25 | NUR ---
Call placed to Alma Omalley Patient's sister and informed her of Patient passing. Verified with Alma [place] and Patient valuables to be sent to home with Patient on discharge. 2 phone consent obtained with Janae Garrett RN
--- NOTE | 2020-03-22 23:10 | NUR ---
Radhika RN from [facility] here to assist with cleaning/bagging Patient. [facility] and stated she spoke with Kush. Radhika stated she informed them not to come until notified by security.
--- NOTE | 2020-03-22 23:30 | NUR ---
Radhika mcneal [facility] left for evening, awaiting verification on donation status from [facility].
--- NOTE | 2020-03-23 00:35 | NUR ---
Spoke with Rayne(boardinghouse keeper) prior to [place] [facility] [place] [facility] has not confirmed donation status and ensure that Patient would not go to home prior to call from [facility]. Rayne stated transport of Patient would go through her and she would make sure verification would be received prior to transport.
--- NOTE | 2020-03-23 00:50 | NUR ---
Call to security for [facility].
--- NOTE | 2020-03-23 01:12 | NUR ---
Patient taken to [facility] with bag of belongings tied shut, knotted and labeled. Belongings include shoes, clothing, glasses, dentures in mouth and wallet.
--- NOTE | 2020-03-23 01:26 | NUR ---
Call placed to [facility] and verified with Jay Jay that Patient is an organ and eye candidate.
--- NOTE | 2020-03-23 10:42 | PDOC3 ---
Discharge Summary Date of Admission: March 22, 2020 Date of Discharge: March 23, 2020 Follow-Up: Other () Admitting Diagnosis comment: SUMMARY, D/C DX Assessment/Plan Admitting IMPRESSION END STAGE LIVER DISEASE Acute alcoholic hepatitis, Maddrey score is 47, scores greater than 32 are very poor prognosis. Acute renal failure most likely prerenal etiology since patient has had very poor oral intake over the last 72 hours. Severe hyponatremia Hypomagnesemia Hypokalemia Hypoglycemia Elevated Lipase, doubt pancreatitis given that his symptoms most likely are related to his alcoholic hepatitis Severe alcoholism PLAN PALLIATIVE //HOSPICE CARE, ROUTINE [facility] 03/22 HOSPICE CONSULTED D/W RN very poor short term prognosis d/w sister in [place] by phone, consents to hospice eval and intake verbally 03/20 [facility] will COORDINATE, ADMIT INPATIENT HOSPICE EXPECT LESS THAN 5- 7 DAYS FINAL DIAGNOSIS Assessment/Plan Assessment/Plan Admitting IMPRESSION END STAGE LIVER DISEASE Acute alcoholic hepatitis, Maddrey score is 47, scores greater than 32 are very poor prognosis. Acute renal failure most likely prerenal etiology since patient has had very poor oral intake over the last 72 hours. Severe hyponatremia Hypomagnesemia Hypokalemia Hypoglycemia Elevated Lipase, doubt pancreatitis given that his symptoms most likely are related to his alcoholic hepatitis Severe alcoholism PLAN PALLIATIVE //HOSPICE CARE, ROUTINE MEDS [facility] 03/22 HOSPICE CONSULTED D/W RN very poor short term prognosis d/w sister in [place] by phone, consents to hospice eval and intake verbally 03/20 [facility] will COORDINATE, ADMIT INPATIENT HOSPICE EXPECT LESS THAN 5- 7 DAYS Brief Hospital Course Mr. Leon is a 54 old [sex] who presented with [END STAGE LIVER DISEASE ] CONDITION AT DISCHARGE: / Discharge Medications Current Medications Morphine Sulfate (Morphine Sulfate) 2 mg PRN Q1HR PRN IV MODERATE TO SEVERE PAIN Last administered on 03/22/20at 18:08; Start 03/21/20 at 14:45; Stop 03/23/20 at 09:59; Status DC Lorazepam (Ativan Inj) 2 mg PRN Q1HR PRN IVP ANXIETY / AGITATION Last administered on 03/22/20at 12:24; Start 03/21/20 at 14:45; Stop 03/23/20 at 09:59; Status DC Scopolamine (Transderm-Scop) 1 patch Q3DAYS TD Last administered on 03/21/20at 15:24; Start 03/21/20 at 15:00; Stop 03/23/20 at 09:59; Status DC Acetaminophen (Tylenol Supp) 650 mg PRN Q4HRS PRN MN MILD PAIN / TEMP > 100.3'F Last administered on 03/22/20at 04:33; Start 03/21/20 at 14:45; Stop 03/22/20 at 09:14; Status DC Bisacodyl (Dulcolax Supp) 10 mg PRN DAILY PRN MN CONSTIPATION; Start 03/21/20 at 14:45; Stop 03/23/20 at 09:59; Status DC Sodium Chloride (Normal Saline Flush) 3 ml QSHIFT PRN IV AFTER MEDS AND BLOOD DRAWS; Start 03/21/20 at 14:45; Stop 03/23/20 at 09:59; Status DC Morphine Sulfate (Roxanol Conc) 5 mg PRN Q2HRS PRN SL SOA/MOD-SEVERE PAIN; St art 03/22/20 at 09:15; Stop 03/23/20 at 09:59; Status DC Morphine Sulfate (Morphine Sulfate) 1 mg PRN Q2HR PRN IV SOA/PAIN; Start 03/22/20 at 09:15; Stop 03/23/20 at 09:59; Status DC Lorazepam (Ativan) 1 mg PRN Q4HRS PRN PO ANXIETY / AGITATION; Start 03/22/20 at 09:15; Stop 03/23/20 at 09:59; Status DC Promethazine HCl (Phenergan Supp) 25 mg PRN Q4HRS PRN MN NAUSEA/VOMITING; Start 03/22/20 at 09:15; Stop 03/23/20 at 09:59; Status DC Acetaminophen (Tylenol Supp) 650 mg PRN Q4HRS PRN MN MILD PAIN / TEMP > 100.3'F Last administered on 03/22/20at 09:38; Start 03/22/20 at 09:15; Stop 03/23/20 at 09:59; Status DC Vital Signs Vital Signs Date Time Temp Pulse Resp B/P (MAP) Pulse Ox O2 Delivery O2 Flow Rate FiO2 03/22/20 19:35 Nasal Cannula 2.5 03/22/20 19:12 98.5 85 10 / (85) 39 98.5 Allergies Allergies Coded Allergies Type Severity Reaction Last Updated Verified No Known Drug Allergies 03/14/20 No Disposition/Orders: AMBROSE KENDALL MD March 23, 2020 10:42
== END 2020-03-22 21:30 | disposition expired | DRG 433 ==
LOC: 4 NORTH 13:17
PROVIDERS: ADMIT Family Medicine; ATTEND Family Medicine
DX: K70.11 Alcoholic hepatitis with ascites (principal); E87.1 Hypo-osmolality and hyponatremia; N17.9 Acute kidney failure, unspecified; K70.31 Alcoholic cirrhosis of liver with ascites; K72.90 Hepatic failure, unspecified without coma; E16.2 Hypoglycemia, unspecified; F10.20 Alcohol dependence, uncomplicated; E87.6 Hypokalemia; E83.42 Hypomagnesemia; E78.5 Hyperlipidemia, unspecified; F17.210 Nicotine dependence, cigarettes, uncomplicated; Z51.5 Encounter for palliative care; Z82.49 Family history of ischemic heart disease and other diseases of the circulatory system; K21.9 Gastro-esophageal reflux disease without esophagitis; K70.10 Alcoholic hepatitis without ascites
CPT/HCPCS: J2060; J2270; G0378